=== PATIENT | female | born 1990 | race American Indian/Alaskan Native ===

== ENCOUNTER 2019-03-28 16:55 | Outpatient (CLI) | payer OTHER ==
[2019-03-28 17:23] VITALS: BP 127/72
[2019-03-28 17:52] LABS: Bilirubin,Urine NEG (Negative); Blood,Urine NEG (Negative); Color,Urine Yellow (Yellow); Mucus,Urine FEW /HPF; Protein,Urine <15 mg/dL mg/dL (Negative)
== END 2019-03-28 18:55 | disposition home or self-care (01) ==
LOC: TRG 16:55
PROVIDERS: ATTEND Obstetrics & Gynecology
DX: O47.03 False labor before 37 completed weeks of gestation, third trimester (principal); Z3A.34 34 weeks gestation of pregnancy
CPT/HCPCS: 59025; 81001

== ENCOUNTER 2019-04-19 16:24 | Outpatient (CLI) | payer OTHER ==
[2019-04-19 18:04] VITALS: BP 135/79
[2019-04-19] MEDS ORDERED: TYLENOL PO ONE (18:34)
[2019-04-19 19:19] LABS: Bacteria,Urine 1+ /HPF (Negative); Bilirubin,Urine NEG (Negative); Blood,Urine NEG (Negative); Color,Urine Yellow (Yellow); Mucus,Urine FEW /HPF
== END 2019-04-19 19:40 | disposition home or self-care (01) ==
LOC: TRG 16:24 → LD 17:25 → TRG 19:40
PROVIDERS: ATTEND Obstetrics & Gynecology
DX: O47.03 False labor before 37 completed weeks of gestation, third trimester (principal); Z3A.37 37 weeks gestation of pregnancy
CPT/HCPCS: 59025; 81001

== ENCOUNTER 2019-04-27 13:01 | Outpatient (CLI) | payer OTHER ==
[2019-04-27 13:41] VITALS: BP 118/76
== END 2019-04-27 14:20 | disposition home or self-care (01) ==
LOC: TRG 13:01
PROVIDERS: ATTEND Obstetrics & Gynecology
DX: O26.893 Other specified pregnancy related conditions, third trimester (principal); R10.2 Pelvic and perineal pain; Z3A.38 38 weeks gestation of pregnancy
CPT/HCPCS: 59025

== ENCOUNTER 2019-05-02 16:54 | Inpatient (IN) | payer OTHER ==
[2019-05-02] MEDS ORDERED: ZOFRAN IV PRN (17:13)
[2019-05-02] MEDS ORDERED: BRETHINE IVP PRN (17:13)
[2019-05-02] MEDS ORDERED: NARCAN 0.4 MG/1 ML IV PRN (17:13)
[2019-05-02] MEDS ORDERED: BRETHINE SUB-Q PRN (17:13)
[2019-05-02] MEDS ORDERED: XYLOCAINE 2% INFILTRATI ONE (17:13)
[2019-05-02] MEDS ORDERED: MINERAL OIL PO PRN (17:13)
[2019-05-02] MEDS ORDERED: PITOCin/NS 20 UNIT/1000ML DRIP 20 UNITS/1,000 ML BAG IV SCH (18:00)
[2019-05-02] MEDS ORDERED: PITOCin/NS 30 UNIT/500ML 30 UNITS/500 ML BAG IV SCH (18:00)
[2019-05-02 18:17] LABS: Hematocrit 26.9 % (30.3-42.9); Hemoglobin 9.1 gm/dl (10.1-14.3); Mean Corpuscular HGB Conc 34 % (30-34); Mean Corpuscular Volume 79 fl (79-97); Platelet Count 233 K/mm3 (140-440); Red Blood Count 3.39 M/mm3 (3.65-5.03); Red Cell Distribution Width 15.1 % (13.2-15.2)
[2019-05-02 19:23] LABS: Alanine Aminotransferase 12 units/L (7-56); Uric Acid 5.5 mg/dL (3.5-7.6)
--- NOTE | 2019-05-02 19:53 | History and Physical Report ---
History of Present Illness Date of examination: 05/02/19 Date of admission: 05/02/19 17:13 Chief complaint: Presents for induction of labor due to maternal obesity, elevated blood pressures, and advanced cervical dilation. History of present illness: Early entry to care, course complicated by Anemia, Vitamin D Deficiency, and 2 UTIs. Co-managed with [facility] due maternal obesity. 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) Family/Genetic History: heart disease (mother) Social history: no significant social history, - Obstetrical History Expected Date of Delivery: 05/16/19 Actual Gestation: 38 Week(s) 0 Day(s) : 4 Para: 1 Hx # Term Pregnancies: 1 Spontaneous Abortions: 2 Number of Living Children: 1 #1 Infant Gender: Female year: 2009 Birthweight: 4.082 kg Method of Delivery: Vaginal Gestational age at delivery: 38 Complications: none Medications and Allergies Allergies Allergy/AdvReac Type Severity Reaction Status Date / Time No Known Allergies Allergy Verified 03/28/19 17:03 Active Meds: Active Medications Butorphanol Tartrate (Stadol) 2 mg IV Q2H PRN PRN Reason: Pain , Severe (7-10) Ephedrine Sulfate (Ephedrine Sulfate) 10 mg IV Q2M PRN PRN Reason: Hypotension Oxytocin/Sodium Chloride (Pitocin/Ns 20 Unit/1000ml Drip) 20 units in 1,000 mls @ 125 mls/hr IV DIRECT LILY Oxytocin/Sodium Chloride (Pitocin/Ns 30 Unit/500ml) 30 units in 500 mls @ 4 mls/hr IV TITR LILY; Protocol Lactated Ringer's (Lactated Ringers) 1,000 mls @ 125 mls/hr IV DIRECT LILY Mineral Oil (Mineral Oil) 30 ml PO QHS PRN PRN Reason: Constipation Naloxone HCl (Narcan 0.4 Mg/1 Ml) 0.1 mg IV Q2MIN PRN PRN Reason: Res Rate </= 8 or 02 SAT < 92% Ondansetron HCl (Zofran) 4 mg IV Q8H PRN PRN Reason: Nausea And Vomiting Terbutaline Sulfate (Brethine) 0.25 mg SUB-Q ONCE PRN PRN Reason: Hyperstimulation/Hypertonicity Terbutaline Sulfate (Brethine) 0.25 mg IVP ONCE PRN PRN Reason: Hyperstimulation/Hypertonicity Review of Systems All systems: negative - Vital Signs Vital signs: Vital Signs Pulse BP 68 158/84 05/02/19 17:32 05/02/19 17:32 Temp Pulse Resp BP Pulse Ox 98.4 F 68 16 158/84 05/02/19 18:07 05/02/19 18:07 05/02/19 18:07 05/02/19 18:07 - Physical Exam Breasts: Positive: normal Cardiovascular: Regular rate Lungs: Positive: Clear to auscultation, Normal air movement Abdomen: Positive: normal appearance, soft, normal bowel sounds Genitourinary (Female): Positive: normal external genitalia, normal perenium Vagina: Positive: normal moisture Uterus: Positive: enlarged Anus/Rectum: Positive: normal perianal skin Extremities: Positive: normal - Obstetrical FHR: category 1 Uterine Contraction Monitor Mode: External Cervical Dilatation: 4 (Intact; VTX) Cervical Effacement Percentage: 70 station: -2 Uterine Contraction Pattern: Absent Uterine Tone Measurement Phase: Resting Results Result Diagrams: 05/02/19 17:50 05/02/19 17:50 Abnormal lab results 05/02/19 05/02/19 Range/Units 17:50 17:50 RBC 3.39 L (3.65-5.03) M/mm3 Hgb 9.1 L (10.1-14.3) gm/dl Hct 26.9 L (30.3-42.9) % MCH 27 L (28-32) pg Creatinine 0.6 L (0.7-1.2) mg/dL All other labs normal. Assessment and Plan A: IUP @ 38 Weeks Category I Tracing Elevated Blood Pressure Maternal Obesity Advanced Cervical Dilation Anemia GBS Negative P: Admit to L&D per Routine Orders PIH Labs Pitocin Induction
[2019-05-03] MEDS: LACTATED RINGERS 1,000 ML IV SCH ×2 (01:03→11:48)
--- NOTE | 2019-05-03 11:10 | Progress Note ---
Assessment and Plan A: Term IUP Pitocin IOL; Pit 8mu(Morbid obesity, Advanced cervical dilation) Category 1 tracing AROM 05/03/19 @11:00; Moderate clear fluid GBS Negative Anticipate P: Continue L&D orders May have IV pain med/epidural PRN Anticipate Subjective - Subjective Date of service: 05/03/19 (11:00) Principal diagnosis: IUP at term, IOL, MO Interval history: See H&P Patient reports: movement normal, contractions (rates "5"on 0/10 pain scale), no loss of fluid, no vaginal bleeding Objective - Vital Signs Vital Signs: Vital Signs - 12hr 05/03/19 05/03/19 05/03/19 07:35 07:37 07:40 Temperature 98.9 F Pulse Rate 79 79 Blood Pressure 173/92 136/70 - Exam Breasts: normal Cardiovascular: Regular rate, Normal S1, Normal S2, No murmurs Lungs: Clear to auscultation, Normal air movement Abdomen: Present: normal appearance, soft, normal bowel sounds, other (gravid) Vulva: both: normal Uterus: Present: other (gravid; S=D) FHR: category 1 Uterine Contraction Monitor Mode: External Cervical Dilatation: 6 (AROM, moderate amt clear fluid. Pt tolerated well) Cervical Effacement Percentage: 70 station: -2 Uterine Contraction Frequency (min): 3-6 Uterine Contraction Pattern: Regular Uterine Tone Measurement Phase: Resting Uterine Contraction Intensity: Moderate Extremities: normal Deep Tendon Reflex Grade: Normal +2 - Labs Labs: Abnormal Labs 05/02/19 05/02/19 17:50 17:50 RBC 3.39 L Hgb 9.1 L Hct 26.9 L MCH 27 L Creatinine 0.6 L Laboratory Results - last 24 hr 05/02/19 05/02/19 05/02/19 17:50 17:50 17:50 WBC 7.1 RBC 3.39 L Hgb 9.1 L Hct 26.9 L MCV 79 MCH 27 L MCHC 34 RDW 15.1 Plt Count 233 Creatinine 0.6 L Estimated GFR > 60 Uric Acid 5.5 AST 14 ALT 12 Lactate Dehydrogenase 133 Blood Type O POSITIVE Antibody Screen Negative
[2019-05-03] MEDS: STADOL IV PRN ×2 (11:23→14:32)
[2019-05-03] MEDS ORDERED: LANSINOH TP PRN (15:31)
[2019-05-03] MEDS ORDERED: DULCOLAX PR PRN (15:31)
[2019-05-03] MEDS ORDERED: TUCKS PAD TP PRN (15:31)
[2019-05-03] MEDS ORDERED: BENADRYL PO PRN (15:31)
[2019-05-03] MEDS ORDERED: MILK OF MAGNESIA PO PRN (15:31)
[2019-05-03] MEDS ORDERED: ZOFRAN IV PRN (15:31)
--- NOTE | 2019-05-03 15:39 | Procedure Note ---
OB Delivery Note - Delivery Date of Delivery: 05/03/19 (15:15) Surgeon: CIELO CRANE (AZRA) Estimated blood loss: 200cc - Vaginal Delivery presentation: vertex Delivery position: OA Intrapartum events: mult.variable deceleratio Delivery induction: oxytocin Delivery augmentation: rupture of membranes Delivery monitor: external FHT, external uterine Route of delivery: (15:15) Delivery placenta: spontaneous (15:21) Delivery cord: nuchal cord (x1, tight), 3 umbilical vessels Delivery laceration: 1st degree (small; approximates well; left unrepaired) Anesthesia: intravenous Delivery comments: viable male infant JESI, tight nuchal cord x1 delivered intact via somersault maneuver at 15:15. Vigorous placed [id number] on mothers abdomen. Delayed cord clamping then cut by FOB with my guidance. Cord blood collected per protocol. Spontaneous fiore delivery of intact placenta at 15:21. 3VC. Discarded via Hospital. FF@U-1. Small first degree laceration, well approximates, minimal bleeding, left unrepaired. No other tears or lacerations noted. Infant and mother left in stable condition in L&D. EBL 200ml - A at 1 minute: 8 at 5 minutes: 9 Gender: Male (3391 grams, 7lbs 8oz, 18.5")
[2019-05-03] MEDS ORDERED: SODIUM CHLORIDE FLUSH SYRINGE 10 ML IV NR (16:00)
[2019-05-03] MEDS: IBUPROFEN PO SCH ×2 (16:45→23:03)
[2019-05-03] MEDS ORDERED: DERMOPLAST TP PRN (19:26)
[2019-05-03] MEDS: NORCO 5/325 PO PRN (20:05)
[2019-05-04] MEDS: NORCO 5/325 PO PRN ×2 (03:31→16:34)
[2019-05-04 06:16] LABS: Hematocrit 23.8 % (30.3-42.9)
[2019-05-04] MEDS: IBUPROFEN PO SCH ×3 (06:57→19:41)
--- NOTE | 2019-05-04 07:08 | Progress Note ---
Assessment and Plan A: PPD#1 s/p Bottle feeding Asymptomatic Anemia Desires Depo Provera prior to discharge home Stable P: Continue routine PP orders Infed 100mg IM x1 dose Depo Provera 150mg IM x1 dose Continue Ferrous sulfate Anticipate discharge home today pending peds Subjective - Subjective Date of service: 05/04/19 Principal diagnosis: PPD#1 s/p Interval history: See H&P and delivery note Patient reports: appetite normal, voiding normally, pain well controlled, flatus, ambulating normally, no bowel movement : doing well, bottle feeding Objective - Vital Signs Latest vital signs: Vital Signs Temp Pulse Resp BP BP Pulse Ox 05/04/19 04:40 97.7 F 68 18 127/72 99 05/04/19 00:36 97.5 F L 81 20 130/86 100 05/03/19 20:50 97.9 F 63 20 123/62 100 05/03/19 17:39 98.3 F 59 L 20 144/59 05/03/19 13:47 97.8 F 05/03/19 07:40 98.9 F 05/03/19 07:37 79 136/70 05/03/19 07:35 79 173/92 Intake and Output 05/03/19 05/03/19 05/04/19 15:59 23:59 07:59 Intake Total 1000 360 360 Output Total 400 300 Balance 1000 -40 60 Intake: IV 1000 Lactated Ringers 1,000 ml 1000 @ 125 mls/hr IV DIRECT LILY Rx#:[id number] Intake, Free Water 360 360 Output: Urine 400 300 Void 400 300 Other: Total, Output Amount 400 300 Estimated Blood Loss 200 - Exam Breasts: Present: normal. Absent: Cardiovascular: Present: Regular rate, Normal S1, Normal S2, No murmurs Lungs: Present: Clear to auscultation, Normal air movement Abdomen: Present: normal appearance, soft, normal bowel sounds Vulva: both: normal Uterus: Present: firm, fundal height below umbilicus (-1) Extremities: Present: normal Deep Tendon Reflex Grade: Normal +2 - Labs Labs: Abnormal lab results 05/04/19 Range/Units 05:57 Hgb 8.0 L (10.1-14.3) gm/dl Hct 23.8 L (30.3-42.9) %
--- NOTE | 2019-05-04 08:02 | Discharge Summary ---
Providers - Providers Date of Admission: 05/02/19 17:13 Date of discharge: 05/04/19 Attending physician: DIEGO HECTOR MD Primary care physician: DIEGO HECTOR MD Hospitalization Reason for admission: active labor, IUP at term Delivery: Procedure details: See H&P and delivery note Episiotomy: none Laceration: 1st degree (small, well approximated. Left unrepaired) Other procedures: none complications: none Discharge diagnosis: IUP at term delivered Condition at discharge: Good Disposition: DC-01 TO HOME OR SELFCARE Plan - Provider Discharge Summary Activity: routine, no sex for 6 weeks, no heavy lifting 4 weeks, no strenuous exercise Diet: routine Instructions: routine Additional instructions: [] Smoking cessation referral if applicable(refer to patient education folder for contact #) [] Refer to [facility] Booklet Call your doctor immediately for: * Fever > 100.5 * Heavy vaginal bleeding ( >1 pad per hour) * Severe persistent headache * Shortness of breath * Reddened, hot, painful area to leg or breast * Drainage or odor from incision. * Keep incision clean and dry at all times and follow doctor's instructions regarding bathing/showering Depo Provera 150mg IM x 1 dose prior to discharge home IFed 100mg IM x 1 dose given for asymptomatic anemia Continue Ferrous Sulfate 325mg by mouth twice daily Continue vitamins - Follow up plan Follow up: DIEGO HECTOR MD [Primary Care Provider] - 6 Weeks
[2019-05-04] MEDS ORDERED: DEPO-PROVERA (CONTRACEPTION) IM NR (08:30)
[2019-05-04] MEDS ORDERED: INFED IM NR (09:30)
[2019-05-05] MEDS: IBUPROFEN PO SCH ×5 (01:30→21:01)
[2019-05-05] MEDS: TYLENOL PO PRN (07:52)
--- NOTE | 2019-05-05 11:20 | Progress Note ---
Assessment and Plan A: day 2 S/P spontaneous vaginal delivery. Elevated blood pressures. Anemia secondary to and blood loss. P: Repeat preeclamptic labs. Labetalol 100 mg po BID. Supplement with oral iron. Subjective - Subjective Date of service: 05/05/19 Principal diagnosis: PPD#2 s/p Interval history: day 2 S/P spontaneous vaginal delivery. Patient has had elevated blood pressures; not currently taking any blood pressure medications. Patient denies headache, chest pain, cough, shortness of breath, visual disturbance, nausea or vomiting, swelling, or leg pain. Patient reports a small amount of lochia. She is voiding without difficulty, ambulating well, and tolerating a regular diet. Patient reports: appetite normal, voiding normally, pain well controlled, fla tus, ambulating normally, no dizzy ambulation, no nauseated [place]: doing well Objective - Vital Signs Latest vital signs: Vital Signs Temp Pulse Resp BP BP Pulse Ox 05/05/19 09:42 98.6 F 67 16 158/80 99 05/04/19 23:58 98.2 F 78 18 140/78 97 05/04/19 20:10 65 140/77 05/04/19 16:31 98.1 F 71 18 153/79 05/04/19 12:11 98.4 F 63 18 164/76 Intake and Output 05/04/19 05/05/19 05/05/19 23:59 07:59 15:59 Intake Total 840 480 Balance 840 480 Intake: Oral 480 Intake, Free Water 360 480 Other: Total, Intake Amount 480 # Voids Void 240 1 - Exam Abdomen: Present: normal appearance, soft. Absent: distention, tenderness, guarding, rigidity Uterus: Present: normal, firm, fundal height below umbilicus Extremities: Present: normal, edema (mild bilateral lower extremities)
[2019-05-05] MEDS: NORMODYNE PO SCH ×2 (11:40→21:03)
[2019-05-05] MEDS: FEOSOL PO SCH ×2 (11:40→21:00)
[2019-05-05 14:01] LABS: Hematocrit 25.2 % (30.3-42.9); Hemoglobin 8.3 gm/dl (10.1-14.3); Mean Corpuscular HGB Conc 33 % (30-34); Mean Corpuscular Volume 81 fl (79-97); Platelet Count 226 K/mm3 (140-440); Red Blood Count 3.11 M/mm3 (3.65-5.03); Red Cell Distribution Width 15.8 % (13.2-15.2)
[2019-05-05 14:24] LABS: Alanine Aminotransferase 13 units/L (7-56); Albumin 2.9 g/dL (3.9-5); BUN/Creatinine Ratio 17; Blood Urea Nitrogen 10 mg/dL (7-17); Calcium 8.7 mg/dL (8.4-10.2); Hemolysis Index 3
[2019-05-05 14:51] LABS: Bilirubin,Urine NEG (Negative); Blood,Urine MOD (Negative); Color,Urine Yellow (Yellow); Mucus,Urine 1+ /HPF; Urobilinogen,Urine < 2.0 mg/dL (<2.0)
[2019-05-05] MEDS ORDERED: NORMODYNE PO ONE (16:00)
[2019-05-06] MEDS: TYLENOL PO PRN ×3 (02:42→20:32)
[2019-05-06] MEDS: IBUPROFEN PO SCH ×3 (06:26→16:00)
[2019-05-06] MEDS: FEOSOL PO SCH ×2 (10:25→21:43)
[2019-05-06] MEDS: NORMODYNE PO SCH ×2 (10:25→21:43)
--- NOTE | 2019-05-06 12:22 | Progress Note ---
Assessment and Plan A: day 3 S/P vaginal delivery. Hypertension. Morbid obesity. Heart murmur. Anemia secondary to and blood loss. P: Increase Labetalol to 200 mg po BID. Monitor vital signs. Continue iron supplementation. Consulted with Dr. Llamas re: heart murmur; he states OK to get work up as an outpatient after hospital discharge. If BPs stabilize, anticipate discharge sometime tomorrow. Subjective - Subjective Date of service: 05/06/19 Principal diagnosis: PPD#3 s/p Interval history: day 3 S/P spontaneous vaginal delivery. Patient is taking Labetalol 100 mg po BID for hypertension. Patient's BPs still elevated. Patient denies headache, cough, chest pain, visual disturbance, dizziness, abdominal pain, or leg pain. She states she has GERD symptoms and wants medication for this. Patient reports: appetite normal, voiding normally, pain well controlled, flatus, ambulating normally, no dizzy ambulation, no nauseated : doing well Objective - Vital Signs Latest vital signs: Vital Signs Temp Pulse Resp BP BP Pulse Ox 05/06/19 10:25 73 128/40 05/06/19 08:35 97.9 F 73 20 128/40 05/06/19 06:26 18 05/06/19 03:42 18 05/06/19 02:42 18 05/06/19 01:39 98.3 F 72 20 149/67 94 05/05/19 22:01 18 05/05/19 21:03 60 176/61 05/05/19 21:01 18 05/05/19 20:59 184/55 05/05/19 20:55 176/61 05/05/19 16:42 98.1 F 85 16 139/70 100 05/05/19 16:30 98.6 F 87 18 139/70 100 05/05/19 15:31 70 162/81 05/05/19 13:59 70 162/81 Intake and Output 05/05/19 05/06/19 05/06/19 23:59 07:59 15:59 Intake Total 500 120 Balance 500 120 Intake: Oral 300 120 Intake, Free Water 200 Other: Total, Intake Amount 300 120 # Voids Void 1 - Exam Cardiovascular: Present: Regular rate, Normal S1, Normal S2, Other (murmur heard) Lungs: Present: Clear to auscultation Abdomen: Present: normal appearance, soft, normal bowel sounds. Absent: distention, tenderness, guarding, rigidity Uterus: Present: normal, firm, fundal height below umbilicus. Absent: boggine ss, tenderness Extremities: Present: normal, edema (mild pedal edema bilaterally). Absent: tenderness - Labs Labs: Abnormal lab results 05/05/19 05/05/19 Range/Units 13:32 13:32 RBC 3.11 L (3.65-5.03) M/mm3 Hgb 8.3 L (10.1-14.3) gm/dl Hct 25.2 L (30.3-42.9) % MCH 27 L (28-32) pg RDW 15.8 H (13.2-15.2) % Potassium 3.5 L (3.6-5.0) mmol/L Creatinine 0.6 L (0.7-1.2) mg/dL Glucose 101 H (65-100) mg/dL Lactate Dehydrogenase 184 H (91-180) units/L Total Protein 6.2 L (6.3-8.2) g/dL Albumin 2.9 L (3.9-5) g/dL
[2019-05-06 19:12] LABS: BUN/Creatinine Ratio 16; Blood Urea Nitrogen 8 mg/dL (7-17); Calcium 8.5 mg/dL (8.4-10.2); Hemolysis Index 2
[2019-05-06] MEDS: PEPCID PO SCH (21:43)
[2019-05-07 00:04] LABS: Alanine Aminotransferase 29 units/L (7-56)
[2019-05-07] MEDS: IBUPROFEN PO SCH ×2 (03:53→12:50)
[2019-05-07] MEDS: TYLENOL PO PRN (06:15)
[2019-05-07] MEDS: NORMODYNE PO SCH (10:08)
[2019-05-07] MEDS: FEOSOL PO SCH (10:08)
[2019-05-07] MEDS: PEPCID PO SCH (10:08)
[2019-05-07 12:22] LABS: Hematocrit 23.2 % (30.3-42.9); Hemoglobin 7.8 gm/dl (10.1-14.3); Mean Corpuscular HGB Conc 34 % (30-34); Mean Corpuscular Volume 81 fl (79-97); Platelet Count 245 K/mm3 (140-440); Red Blood Count 2.88 M/mm3 (3.65-5.03); Red Cell Distribution Width 15.7 % (13.2-15.2)
--- NOTE | 2019-05-07 12:28 | Progress Note ---
Assessment and Plan - Patient Problems (1) Status post normal vaginal delivery Current Visit: Yes Status: Acute Plan to address problem: PPD 4 - stable Continue routine orders Discharge to home later today if PIH labs WNL. (2) Gestational hypertension Current Visit: Yes Status: Acute Qualifiers: Trimester: third trimester Qualified Code(s): O13.3 - Gestational [-induced] hypertension without significant proteinuria, third trimester Plan to address problem: SBPs still elevated but stable Repeat PIH labs ordered Currently on Labetalol 200mg PO BID. Will increase to Labetalol 300mg PO BID If PIH labs normal, will discharge to home on Labetalol and have her f/u at the clinic in 2 days for BP check. 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 and Discharge Summary Patient reports: appetite normal, voiding normally, pain well controlled, ambulating normally, other (denies headache, visual disturbances or RUQ pain), no dizzy ambulation : doing well, bottle feeding Objective - Vital Signs Latest vital signs: Vital Signs Temp Pulse Resp BP BP BP Pulse Ox 05/07/19 10:08 66 156/84 05/07/19 08:28 73 160/73 100 05/07/19 06:19 82 127/61 05/06/19 23:15 74 153/64 05/06/19 21:37 98.3 F 64 16 165/66 100 05/06/19 15:25 98.4 F 83 20 157/68 05/06/19 13:08 68 176/84 - Exam Cardiovascular: Present: Regular rate Abdomen: Present: normal appearance, soft Vulva: both: laceration/episiotomy Uterus: Present: normal, firm, fundal height below umbilicus Extremities: Present: normal Comments: scant lochia - Labs Labs: Abnormal lab results 05/06/19 05/07/19 Range/Units 17:57 12:10 RBC 2.88 L (3.65-5.03) M/mm3 Hgb 7.8 L (10.1-14.3) gm/dl Hct 23.2 L (30.3-42.9) % MCH 27 L (28-32) pg RDW 15.7 H (13.2-15.2) % Creatinine 0.5 L (0.7-1.2) mg/dL
[2019-05-07 12:43] LABS: Uric Acid 7.1 mg/dL (3.5-7.6)
[2019-05-07] MEDS ORDERED: NORMODYNE PO SCH ×2 (13:23→13:30)
--- NOTE | 2019-05-07 13:25 | Discharge Summary ---
Providers - Providers Date of Admission: 05/02/19 17:13 Date of discharge: 05/07/19 Attending physician: DIEGO HECTOR MD Primary care physician: DIEGO HECTOR MD Hospitalization Reason for admission: induction of labor, IUP at term Delivery: Episiotomy: none Laceration: 1st degree Other procedures: none complications: none Discharge diagnosis: IUP at term delivered baby: male Hospital course: Complicated by elevated BPs without proteinuria and normal PIH labs Condition at discharge: Stable Disposition: OR-01 TO HOME OR SELFCARE - Discharge Diagnoses (1) Status post normal vaginal delivery Status: Acute (2) Gestational hypertension Status: Acute Qualifiers: Trimester: third trimester Qualified Code(s): O13.3 - Gestational [-induced] hypertension without significant proteinuria, third trimester Comment: Reviewed signs and symptoms of PIH Continue Labetalol 300mg PO BID (3) Anemia due to blood loss, acute Status: Acute Comment: Asymptomatic Continue iron therapy Encouraged iron-rich foods Plan - Discharge Medications Prescriptions: Ferrous Sulfate [Feosol 325 MG tab] 325 mg PO BID #60 tablet Labetalol [Labetalol 100mg TAB] 300 mg PO BID #60 tablet - Provider Discharge Summary Activity: routine, no sex for 6 weeks, no heavy lifting 4 weeks, no strenuous exercise Diet: routine Instructions: routine Additional instructions: [] Smoking cessation referral if applicable(refer to patient education folder for contact #) [] Refer to [facility] Booklet Call your doctor immediately for: * Fever > 100.5 * Heavy vaginal bleeding ( >1 pad per hour) * Severe persistent headache * Shortness of breath * Reddened, hot, painful area to leg or breast * Drainage or odor from incision. * Keep incision clean and dry at all times and follow doctor's instructions regarding bathing/showering - Follow up plan Follow up: DIEGO HECTOR MD [Primary Care Provider] - 05/09/19 (Follow up at [facility] in 2 days for BP check) Forms: [facility] Discharge Summary
[2019-05-07 14:55] VITALS: BP 164/81
== END 2019-05-07 14:45 | disposition home or self-care (01) | DRG 774 ==
LOC: TRG 16:54 → LD 17:13 → TRG 17:24 → OB 05-03 17:30 → UNDODISIN 05-07 12:40
PROVIDERS: ADMIT Obstetrics & Gynecology; ATTEND Obstetrics & Gynecology
PROC: 10E0XZZ Delivery of Products of Conception, External Approach (ICD-10-PCS; principal; 2019-05-03)
PROC: 0HQ9XZZ Repair Perineum Skin, External Approach (ICD-10-PCS; 2019-05-03)
PROC: 3E033VJ Introduction of Other Hormone into Peripheral Vein, Percutaneous Approach (ICD-10-PCS; 2019-05-03)
PROC: 10907ZC Drainage of Amniotic Fluid, Therapeutic from Products of Conception, Via Natural or Artificial Opening (ICD-10-PCS; 2019-05-03)
DX: O76 Abnormality in fetal heart rate and rhythm complicating labor and delivery (principal); O99.42 Diseases of the circulatory system complicating childbirth; O99.214 Obesity complicating childbirth; O13.4 Gestational [pregnancy-induced] hypertension without significant proteinuria, complicating childbirth; D62 Acute posthemorrhagic anemia; O99.62 Diseases of the digestive system complicating childbirth; E66.01 Morbid (severe) obesity due to excess calories; O69.81X0 Labor and delivery complicated by cord around neck, without compression, not applicable or unspecified; R01.1 Cardiac murmur, unspecified; O70.0 First degree perineal laceration during delivery; Z3A.38 38 weeks gestation of pregnancy; Z37.0 Single live birth
CPT/HCPCS: 36415; 80048; 80053; 81001; 82565; 83615; 84450; 84460; 84550; 85014; 85018; 85027; 85049; 86850; 86900; 86901; G0378; J0595; J1050; J1750; J2590; J7120

== ENCOUNTER 2020-03-17 13:18 | Emergency (ER) | payer OTHER ==
[2020-03-17] MEDS ORDERED: ACETAMINOPHEN 500 MG TAB PO ONE (17:50)
--- NOTE | 2020-03-17 18:18 | Emergency Department Report ---
<KIM MARRERO - Last Filed: 03/17/20 18:49> - General Chief complaint: Urogenital-Female Stated complaint: RT BREAST PAIN/ Time Seen by Provider: 03/17/20 17:37 Source: patient Mode of arrival: Ambulatory Limitations: No Limitations - History of Present Illness Initial comments: This is a 30-year-old female nontoxic, well nourished in appearance, no acute signs of distress presents to the ED with c/o of redness and pain with swelling to right breast area x2 weeks. Patient was sent by OBGYN for US to r/o abscess. Patient is taking Clinda without relief and getting worse. Patient is . Patient denies any pus or drainage. Patient denies any fever, chills, nausea, vomiting, chest pain, shortness of breath, headache or stiff neck. Patient denies any allergies. -: week(s) (2) Severity: moderate Severity scale (0 -10): 8 Quality: aching Consistency: constant Improves with: none Worsens with: none Associated symptoms: denies other symptoms Treatments Prior to Arrival: none - Related Data Previous Rx's Medication Instructions Recorded Last Taken Type Ferrous Sulfate [Feosol 325 MG tab] 325 mg PO BID #60 tablet 05/07/19 Unknown Rx labetaloL [Labetalol 100mg TAB] 300 mg PO BID #60 tablet 05/07/19 Unknown Rx Allergies Allergy/AdvReac Type Severity Reaction Status Date / Time No Known Allergies Allergy Verified 03/28/19 17:03 Abscess Boil HPI - HPI Chief Complaint: Urogenital-Female Stated Complaint: RT BREAST PAIN/ Time Seen by Provider: 03/17/20 17:37 Home Medications: Previous Rx's Medication Instructions Recorded Last Taken Type Ferrous Sulfate [Feosol 325 MG tab] 325 mg PO BID #60 tablet 05/07/19 Unknown Rx labetaloL [Labetalol 100mg TAB] 300 mg PO BID #60 tablet 05/07/19 Unknown Rx Allergies/Adverse Reactions: Allergies Allergy/AdvReac Type Severity Reaction Status Date / Time No Known Allergies Allergy Verified 03/28/19 17:03 ED Review of Systems Constitutional: denies: chills, fever Eyes: denies: eye pain, eye discharge, vision change ENT: denies: ear pain, throat pain Respiratory: denies: cough, shortness of breath, wheezing Cardiovascular: denies: chest pain, palpitations Endocrine: no symptoms reported Gastrointestinal: denies: abdominal pain, nausea, diarrhea Genitourinary: denies: urgency, dysuria, discharge Musculoskeletal: denies: back pain, joint swelling, arthralgia Skin: denies: rash, lesions Neurological: denies: headache, weakness, paresthesias Psychiatric: denies: anxiety, depression Hematological/Lymphatic: denies: easy bleeding, easy bruising ED Past Medical Hx - Past Medical History Previous Medical History?: No Hx Hypertension: No Hx Congestive Heart Failure: No Hx Diabetes: No Hx Deep Vein Thrombosis: No Hx Renal Disease: No Hx Sickle Cell Disease: No Hx Seizures: No Hx Asthma: No Hx COPD: No Hx HIV: No - Surgical History Past Surgical History?: Yes Additional Surgical History: Liposuction - Social History Smoking Status: Never Smoker - Medications Home Medications: Home Medications Medication Instructions Recorded Confirmed Last Taken Type Ferrous Sulfate [Feosol 325 MG tab] 325 mg PO BID #60 tablet 05/07/19 Unknown Rx labetaloL [Labetalol 100mg TAB] 300 mg PO BID #60 tablet 05/07/19 Unknown Rx ED Physical Exam - General Limitations: No Limitations General appearance: alert, in no apparent distress - Head Head exam: Present: atraumatic, normocephalic - Eye Eye exam: Present: normal appearance - Neck Neck exam: Present: normal inspection, full ROM. Absent: tenderness, meningismus, lymphadenopathy - Extremities Exam Extremities exam: Present: full ROM - Back Exam Back exam: Present: full ROM - Neurological Exam Neurological exam: Present: alert, oriented X3, normal gait - Psychiatric Psychiatric exam: Present: normal affect, normal mood - Skin Skin exam: Present: warm, dry, intact, normal color. Absent: rash - Expanded Skin Exam Expanded Description of rash: Present: tenderness, erythematous 1 - 4-5 cm redness, warm to touch, with some swelling noted here ED Course - Reevaluation(s) Reevaluation #1: 03/17/20 18:21 Patient is speaking in full sentences with no signs of distress noted. - Consultations Consultation #1: 07/13/20 18:50 Patient signed out to Dr. Calabrese for further evaluation and treatment. Awaiting for US to r/o abscess. ED Disposition Clinical Impression: Breast abscess during , antepartum Disposition: DC-01 TO HOME OR SELFCARE Condition: Stable Instructions: (ED), Breast Abscess Drainage (ED) Additional Instructions: Take the medication as prescribed. Continue your antibiotics as prescribed. Call the breast surgeon in the morning at 8 AM. The office will provide a time to come in tomorrow so they may drain your breast abscess. Return if symptoms worsen as indicated by your discharge instructions Referrals: PRIMARY CAREMD [Primary Care Provider] - 3-5 Days ELIEL RUVALCABA MD [Staff Physician] - 03/18/20 (breast surgeon Call the office at 8 AM to receive a time to come in tomorrow Verify the correct office address prior to going to your appointment) <SREEKANTH CALABRESE - Last Filed: 03/17/20 23:53> ED Review of Systems ROS: Stated complaint: RT BREAST PAIN/ Other details as noted in HPI ED Course Vital Signs 03/17/20 03/17/20 03/17/20 13:46 18:54 22:28 Temperature 98.2 F Pulse Rate 74 Respiratory 20 18 18 Rate Blood Pressure 131/77 Blood Pressure [Right] O2 Sat by Pulse 100 Oximetry 03/17/20 23:35 Temperature 98.8 F Pulse Rate 65 Respiratory 18 Rate Blood Pressure Blood Pressure 101/70 [Right] O2 Sat by Pulse 100 Oximetry - Reevaluation(s) Reevaluation #2: 03/17/20 22:01 pt is 14 weeks US + for abscess call to general surgeon - Consultations Consultation #1: 03/17/20 22:08 case dw gen surgeon Dr Burnham. suggest IV vanc, needle aspiration, f/u with Peg breast surgeon. Requests to attempt to call Dr Noel if she is available. 03/17/20 22:[address] Ruvalcaba for breast surgeon. She did see patient in the office tomorrow for I and D/needle aspiration. Patient needs to call [phone] at 8 AM to be informed of a time to come to the office tomorrow ED Medical Decision Making - Medical Decision Making Patient received Dilaudid 0.5 mg for pain and 1 dose of IV vancomycin. She was informed to follow-up with Dr. Ruvalcaba tomorrow. She needs to call [phone] at 8 AM to be informed of a time to come to the office tomorrow for incision and drainage/needle aspiration of breast abscess. Critical Care Time: No Critical care attestation.: If time is entered above; I have spent that time in minutes in the direct care of this critically ill patient, excluding procedure time. ED Disposition Is pt being admited?: No Does the pt Need Aspirin: No
--- NOTE | 2020-03-17 21:41 | Ultrasound Report ---
US breast RT complete INDICATION: right breast pain w/ swelling r/o abscess. TECHNIQUE: Grayscale and color Doppler imaging in the right breast. COMPARISON: None available. FINDINGS: In the medial right breast, 3:00 position, there is a 3.5 x 2.5 x 4.7 cm complex fluid collection sug gestive of an abscess. Signer Name: Tim Cline MD Signed: 03/17/2020 9:37 PM Workstation Name: [id number]
[2020-03-17] MEDS ORDERED: VANCOMYCIN/NS 1 GM/250 ML 1 GM/250 ML BAG IV ONE (22:06)
[2020-03-17] MEDS ORDERED: ONDANSETRON 4 MG/2 ML INJ IV ONE (22:09)
[2020-03-17] MEDS ORDERED: HYDROmorphone 1 MG/1 ML INJ IV ONE (22:09)
[2020-03-17] MEDS ORDERED: LIDOCAINE 1%/EPINEPHRINE 1:100,000 VIAL (20 ML) INFILTRATI ONE (23:00)
[2020-03-17 23:36] VITALS: BP 101/70
== END 2020-03-18 00:35 | disposition home or self-care (01) ==
LOC: ED 13:18
DX: O91.111 Abscess of breast associated with pregnancy, first trimester (principal); Z3A.14 14 weeks gestation of pregnancy; Z98.890 Other specified postprocedural states; Z79.899 Other long term (current) drug therapy
CPT/HCPCS: 76641; 96365; 96375; 99283; J1170; J2405; J3370

== ENCOUNTER 2020-03-19 08:05 | Outpatient (CLI) | payer OTHER | END 2020-03-19 08:06 | disposition home or self-care (01) | LOC: LABHHL 08:05 | PROVIDERS: ATTEND Surgery | DX: N61.1 Abscess of the breast and nipple (principal) | CPT/HCPCS: 87075; 87076; 87116; 87186 ==

== ENCOUNTER 2020-08-10 08:17 | Outpatient (CLI) | payer OTHER ==
[2020-08-10 09:22] VITALS: BP 132/78
== END 2020-08-10 10:00 | disposition home or self-care (01) ==
LOC: TRG 08:17 → APU 08:20 → TRG 09:03
PROVIDERS: ATTEND Obstetrics & Gynecology
DX: O26.893 Other specified pregnancy related conditions, third trimester (principal); N89.8 Other specified noninflammatory disorders of vagina; Z3A.34 34 weeks gestation of pregnancy
CPT/HCPCS: 59025

== ENCOUNTER 2020-08-14 16:44 | Inpatient (IN) | payer OTHER ==
[2020-08-14] MEDS ORDERED: hydrALAZINE 20 MG/1 ML INJ ONE (18:49)
[2020-08-14] MEDS ORDERED: ONDANSETRON 4 MG/2 ML INJ IV PRN (18:52)
[2020-08-14] MEDS ORDERED: TERBUTALINE 1 MG/1 ML INJ SUB-Q PRN (18:52)
[2020-08-14] MEDS ORDERED: ePHEDrine SULFATE 50 MG/1 ML INJ IV PRN (18:52)
[2020-08-14] MEDS ORDERED: LIDOCAINE (2%) 20 MG/1 ML VIAL 20 ML MDV INFILTRATI ONE (18:52)
[2020-08-14] MEDS ORDERED: MINERAL OIL 30 ML ORAL LIQD PO PRN (18:52)
[2020-08-14] MEDS ORDERED: BUTORPHANOL 2 MG/1 ML INJ IV PRN ×2 (18:52)
[2020-08-14] MEDS ORDERED: hydrALAZINE 20 MG/1 ML INJ IV ONE (19:00)
[2020-08-14] MEDS: LACTATED RINGERS 1,000 ML IV SCH (19:17)
--- NOTE | 2020-08-14 19:50 | History and Physical Report ---
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 Pt denied bauman, visual problems or epigastric pain. She admitted to active . 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 Her GBS is neg. No other information is available at this time. Pt's b/p was severely elevated. She was admitted to L&D for MgSo4 therapy and Pitocin induction r/t severe preeclampsia. POC was notified of pt's condition. 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 Family/Genetic History: diabetes, heart disease Social history: - Obstetrical History Expected Date of Delivery: 09/15/20 Actual Gestation: 35 Week(s) 3 Day(s) : 5 Para: 2 Hx # Term Pregnancies: 2 Number of Pregnancies: 0 Spontaneous Abortions: 2 Induced : 0 Number of Living Children: 2 Medications and Allergies Allergies Allergy/AdvReac Type Severity Reaction Status Date / Time No Known Allergies Allergy Verified 03/28/19 17:03 Home Medications Medication Instructions Recorded Confirmed Last Taken Type Ferrous Sulfate [Feosol 325 MG tab] 325 mg PO BID #60 tablet 05/07/19 Unknown Rx labetaloL [Labetalol 100mg TAB] 300 mg PO BID #60 tablet 05/07/19 Unknown Rx Acetaminophen/Codeine [Tylenol 1 tab PO Q6H PRN #10 tab 03/17/20 Unknown Rx /Codeine # 3 tab] Active Meds: Active Medications Acetaminophen (Acetaminophen 325 Mg Tab) 650 mg PO Q4H PRN PRN Reason: Pain, Mild (1-3) Butorphanol Tartrate (Butorphanol 2 Mg/1 Ml Inj) 1 mg IV Q2H PRN PRN Reason: Pain, Moderate(4-6) LABOR PAIN Butorphanol Tartrate (Butorphanol 2 Mg/1 Ml Inj) 2 mg IV Q2H PRN PRN Reason: Pain , Severe (7-10) Ephedrine Sulfate (Ephedrine Sulfate 50 Mg/1 Ml Inj) 10 mg IV Q2M PRN PRN Reason: Hypotension Lactated Ringer's (Lactated Ringers) 1,000 mls @ 125 mls/hr IV DIRECT LILY Last Admin: 08/14/20 19:17 Dose: 125 mls/hr Documented by: Magnesium Sulfate (Magnesium Sulfate 40gm/1000ml) 40 gm in 1,000 mls @ 50 mls/hr IV DIRECT LILY Magnesium Sulfate (Magnesium Sulfate 4gm/100ml) 4 gm in 100 mls @ 300 mls/hr IV ONCE ONE Stop: 08/14/20 20:19 Mineral Oil (Mineral Oil 30 Ml Oral Liqd) 30 ml PO QHS PRN PRN Reason: Constipation Ondansetron HCl (Ondansetron 4 Mg/2 Ml Inj) 4 mg IV Q8H PRN PRN Reason: Nausea And Vomiting Terbutaline Sulfate (Terbutaline 1 Mg/1 Ml Inj) 0.25 mg SUB-Q ONCE PRN PRN Reason: Hyperstimulation/Hypertonicity Review of Systems All systems: negative Eyes: deferred Ears, nose, mouth and throat: deferred Breasts: normal Gastrointestinal: heartburn Genitourinary: normal appearance Rectal Exam: deferred - Vital Signs Vital signs: Vital Signs Pulse BP 75 183/75 08/14/20 18:52 08/14/20 18:52 Temp Pulse Resp BP Pulse Ox 97 H 164/80 99 08/14/20 19:46 08/14/20 19:25 08/14/20 19:46 - Physical Exam Breasts: Positive: normal Abdomen: Positive: normal appearance, soft, normal bowel sounds, other (gravid) Genitourinary (Female): Positive: normal external genitalia, normal perenium Vulva: both: normal Vagina: Positive: normal moisture Uterus: Positive: enlarged, normal contour, other (gravid) Adnexa: both: normal Anus/Rectum: Positive: normal perianal skin Extremities: Positive: normal - Obstetrical FHR: auscultation normal, category 1 Uterine Contraction Monitor Mode: External Cervical Dilatation: 4 Cervical Effacement Percentage: 60 station: -3 Uterine Contraction Frequency (min): irreg Uterine Contraction Pattern: Irregular Uterine Tone Measurement Phase: Resting Uterine Contraction Intensity: Mild Results Result Diagrams: 08/14/20 19:20 All other labs normal. Assessment and Plan A: IUP@ 35.3 wks Severe preeclampsia + HSV II p: Admit to L&D for Pitocin induction Start MgS04 per protocol Hydralazine 20mg IV now Continuous monitoring Anticipate - Patient Problems (1) Encounter for induction of labor Current Visit: Yes Status: Acute (2) Severe preeclampsia Current Visit: Yes Status: Acute (3) HSV (herpes simplex virus) anogenital infection Current Visit: Yes Status: Acute
[2020-08-14 19:51] LABS: Hematocrit 26.5 % (30.3-42.9); Hemoglobin 8.7 gm/dl (10.1-14.3); Mean Corpuscular HGB Conc 33 % (30-34); Mean Corpuscular Volume 78 fl (79-97); Platelet Count 254 K/mm3 (140-440); Red Cell Distribution Width 13.8 % (13.2-15.2)
[2020-08-14] MEDS ORDERED: MAGNESIUM SULFATE 4 GM/100 ML BAG IV ONE (20:00)
[2020-08-14] MEDS ORDERED: OXYTOCIN DRIP 30 UNITS/500 ML BAG IV SCH (20:00)
[2020-08-14 20:04] LABS: Alanine Aminotransferase 11 units/L (7-56); Uric Acid 3.9 mg/dL (3.5-7.6)
[2020-08-14] MEDS ORDERED: CALCIUM CARBONATE 500 MG TAB CHEW PO PRN (20:42)
[2020-08-14] MEDS: MAGNESIUM SULFATE 40GM/1000ML 40 GM/1,000 ML BAG IV SCH (21:10)
[2020-08-14] MEDS: FERROUS SULFATE 325 MG TAB PO SCH (22:01)
[2020-08-15] MEDS ORDERED: hydrALAZINE 20 MG/1 ML INJ ONE (07:12)
[2020-08-15] MEDS: LACTATED RINGERS 1,000 ML IV SCH ×2 (07:21→21:39)
[2020-08-15] MEDS ORDERED: hydrALAZINE 20 MG/1 ML INJ IV SCH (08:00)
--- NOTE | 2020-08-15 11:38 | Event Note ---
Date: 08/15/20 Assumed care of patient at 10:55. Patient is having labor induced due to severe preeclampsia. She is receiving magnesium sulfate. Cervix 8/90/0. Lateral positioning did not resolve variable FHR decelerations. Pitocin turned off at 10:55 AM. Oxygen applied per face mask at 10:55 AM. Amnioinfusion ordered. Hands and knees position instituted.
[2020-08-15] MEDS ORDERED: SODIUM CHLORIDE 0.9% 1000 ML 1,000 ML VG SCH (11:45)
[2020-08-15] MEDS ORDERED: miSOPROStol 200 MCG TAB ONE (12:08)
[2020-08-15] MEDS ORDERED: miSOPROStol 200 MCG TAB PR ONE (12:10)
[2020-08-15] MEDS ORDERED: WITCH HAZEL/ GLYCERIN PAD TP PRN (12:22)
[2020-08-15] MEDS ORDERED: LANOLIN/ZINC/DIMETHICONE (LANSINOH) 7 GM TP PRN (12:22)
[2020-08-15] MEDS ORDERED: oxyCODONE /ACETAMINOPHEN 5-325MG TAB PO PRN (12:22)
--- NOTE | 2020-08-15 12:26 | Procedure Note ---
OB Delivery Note - Delivery Date of Delivery: 08/15/20 Surgeon: JOSH RAMACHANDRAN Estimated blood loss: 300cc - Vaginal Delivery presentation: vertex Delivery position: OA Intrapartum events: preeclampsia Delivery induction: AROM Delivery monitor: external FHT, external uterine, internal FHT, internal uterine Route of delivery: Delivery placenta: spontaneous Delivery cord: nuchal cord, 3 umbilical vessels Episiotomy: none Delivery laceration: none Anesthesia: none Delivery comments: Spontaneous vaginal delivery at 12:01 PM weighing 6 lb. 11 oz. over intact perineum with apgars of 8/9. Tight nuchal cord times 1. Delivery was atraumatic. Baby placed skin to skin with mom immediately after delivery. Spontaneous cry and respirations. Baby suctioned with bulb syringe and dried with warm towels. 3 vessel cord double clamped and cut; cord blood obtained. Spontaneous delivery of intact placenta and membranes by onofre mechanism at 12:04 PM. EBL 300 cc. Pitocin to IV fluids after delivery of placenta. Cytotec 800 micrograms for uterine atony. Fundus firmed with massage. No lacerations noted. Vaginal sweep negative. Sponge count correct. Mother and baby stable. Magnesium sulfate continues for severe preeclampsia.
[2020-08-15] MEDS: ACETAMINOPHEN 325 MG TAB PO PRN ×2 (12:36→19:57)
[2020-08-15] MEDS ORDERED: hydrALAZINE 20 MG/1 ML INJ IV PRN (13:54)
[2020-08-15] MEDS ORDERED: HYDROcodone/ACETAMINOPHEN 5-325 MG TAB PO PRN (13:59)
[2020-08-15] MEDS: MAGNESIUM SULFATE 40GM/1000ML 40 GM/1,000 ML BAG IV SCH (16:38)
[2020-08-15] MEDS: FERROUS SULFATE 325 MG TAB PO SCH (21:39)
[2020-08-16 01:16] LABS: Hematocrit 24.2 % (30.3-42.9)
[2020-08-16] MEDS: ACETAMINOPHEN 325 MG TAB PO PRN (01:16)
[2020-08-16] MEDS: FERROUS SULFATE 325 MG TAB PO SCH ×2 (09:45→22:23)
[2020-08-16] MEDS ORDERED: FERROUS SULFATE 325 MG TAB PO SCH (10:00)
--- NOTE | 2020-08-16 10:11 | Progress Note ---
Assessment and Plan A: day 1 S/P . Chronic hypertension with superimposed severe preeclampsia. Anemia, on oral iron. P: Continue magnesium sulfate. Continue oral Labetalol. Continue oral iron. Subjective - Subjective Date of service: 08/16/20 Principal diagnosis: day 1 S/P ; preeclampsia Interval history: On magnesium sulfate. Chronic hypertension with superimposed severe preeclampsia. Denies headache, visual disturbance or N/V. Has swelling in hands and ankles/feet bilaterally. Patient reports: appetite normal, voiding normally, pain well controlled, no dizzy ambulation, no nauseated : doing well, in NICU Objective - Vital Signs Latest vital signs: Vital Signs Temp Pulse Resp BP BP Pulse Ox 08/16/20 10:00 73 100 08/16/20 09:55 76 99 08/16/20 09:50 88 99 08/16/20 09:45 80 146/79 100 08/16/20 09:40 84 100 08/16/20 09:35 80 98 08/16/20 09:30 86 98 08/16/20 09:27 86 91 08/16/20 09:25 78 98 08/16/20 09:20 90 98 08/16/20 09:15 96 H 89 08/16/20 09:07 199 H 93 08/16/20 09:05 69 98 08/16/20 09:00 70 98 08/16/20 08:55 71 99 08/16/20 08:51 71 146/79 08/16/20 08:50 72 98 08/16/20 08:45 69 98 08/16/20 08:40 71 98 08/16/20 08:35 69 98 08/16/20 08:30 74 99 08/16/20 08:25 70 100 08/16/20 08:20 70 99 08/16/20 08:15 71 100 08/16/20 08:10 67 99 08/16/20 08:05 69 98 08/16/20 08:03 81 90 08/16/20 08:00 73 100 08/16/20 07:55 73 100 08/16/20 07:50 70 100 08/16/20 07:45 74 100 08/16/20 07:40 74 100 08/16/20 07:35 74 99 08/16/20 07:30 73 100 12/12/20 07:25 77 100 12/12/20 07:20 76 98 12/12/20 07:15 78 99 1212/20 07:10 75 99 1212/20 07:09 73 157/78 121220 07:05 72 182/81 97 1212/20 07:00 83 98 1212/20 06:55 66 100 12/12/20 06:50 67 99 12/12/20 06:45 70 98 12/12/20 06:40 68 98 12/20 06:35 71 97 1212/20 06:30 70 97 1212/20 06:25 74 99 12/12/20 06:20 68 99 12/20 06:15 71 98 12/20 06:10 71 97 12/20 05:54 78 145/83 99 12/12/20 05:51 65 18 145/83 100 12/12/20 05:49 63 99 12/12/20 05:44 65 100 12/12/20 05:39 65 100 12/20 05:34 66 100 12/12/20 05:29 65 100 12/12/20 05:24 68 99 12/12/20 05:19 64 100 /12/20 05:14 67 99 12/12/20 05:09 67 99 12/20 05:04 65 99 1212/20 04:59 77 99 12/20 04:54 69 99 12/20 04:51 64 18 144/77 144/77 99 12/20 04:49 66 99 12/12/20 04:44 66 99 12/20 04:39 67 99 12/12/20 04:34 66 99 12/12/20 04:29 66 99 12/12/20 04:24 66 99 12/12/20 04:19 66 99 1212/20 04:14 67 100 1212/20 04:09 76 99 12/20 04:04 76 95 1212/20 03:59 68 99 1212/20 03:54 65 99 1212/20 03:51 98.5 F 67 18 149/75 149/75 99 12/12/20 03:49 66 99 1212/20 03:44 67 98 1212/20 03:39 68 98 12/12/20 03:34 68 100 1220 03:29 67 100 20 03:24 66 97 08/16/20 03:19 68 98 08/16/20 03:14 64 98 08/16/20 03:09 66 97 08/16/20 03:04 71 100 08/16/20 03:03 67 138/74 08/16/20 03:01 69 94 08/16/20 02:59 82 98 08/16/20 02:54 74 99 08/16/20 02:49 67 98 08/16/20 02:44 68 99 08/16/20 02:39 65 99 08/16/20 02:34 78 99 08/16/20 02:29 75 99 08/16/20 02:24 69 100 08/16/20 02:19 76 99 08/16/20 02:14 67 99 08/16/20 02:09 67 100 08/16/20 02:04 70 99 08/16/20 01:59 69 100 08/16/20 01:54 67 99 08/16/20 01:51 67 18 138/66 138/66 99 20 01:49 68 99 20 01:44 67 100 08/16/20 01:39 68 100 08/16/20 01:34 69 100 08/16/20 01:29 72 98 08/16/20 01:24 69 98 08/16/20 01:19 72 98 08/16/20 01:16 18 08/16/20 01:14 69 100 08/16/20 01:11 97.8 F 78 20 136/76 136/76 98 20 01:09 91 H 98 20 00:49 79 98 20 00:44 67 99 20 00:39 64 100 20 00:34 64 99 08/16/20 00:29 65 99 20 00:24 69 100 20 00:19 76 99 20 00:14 72 99 20 00:09 73 98 08/16/20 00:04 70 99 20 23:59 68 99 08/15/20 23:54 71 100 08/15/20 23:52 71 168/77 08/15/20 23:51 98.6 F 74 18 168/77 98 08/15/20 23:49 67 99 08/15/20 23:44 66 99 08/15/20 23:39 66 99 08/15/20 23:34 66 99 08/15/20 23:29 67 99 08/15/20 23:24 72 100 08/15/20 23:19 69 99 08/15/20 23:14 69 99 08/15/20 23:09 69 99 08/15/20 23:04 68 99 08/15/20 22:59 67 100 08/15/20 22:54 66 99 08/15/20 22:51 66 18 149/69 149/69 99 08/15/20 22:49 66 99 08/15/20 22:48 70 147/72 08/15/20 22:44 69 99 08/15/20 22:39 68 99 08/15/20 22:34 69 99 08/15/20 22:29 73 98 08/15/20 22:27 78 94 08/15/20 22:24 72 99 08/15/20 22:19 64 99 08/15/20 22:14 67 99 08/15/20 22:09 62 99 08/15/20 22:04 60 99 08/15/20 21:59 60 99 08/15/20 21:54 67 100 08/15/20 21:52 68 173/81 08/15/20 21:51 18 171/83 99 08/15/20 21:49 65 100 08/15/20 21:44 74 100 08/15/20 21:39 68 142/64 100 08/15/20 21:34 64 100 08/15/20 21:29 68 100 08/15/20 21:24 68 100 08/15/20 21:19 67 100 08/15/20 21:14 67 100 08/15/20 21:09 70 100 08/15/20 21:04 69 100 08/15/20 20:59 68 100 08/15/20 20:54 65 100 08/15/20 20:51 68 18 142/64 142/64 100 08/15/20 20:49 71 100 08/15/20 20:44 67 100 08/15/20 20:39 67 100 08/15/20 20:34 69 100 08/15/20 20:29 68 100 08/15/20 20:24 68 100 08/15/20 20:19 68 100 08/15/20 20:09 61 89 08/15/20 20:07 67 99 08/15/20 20:05 98.6 F 65 18 153/68 153/68 100 08/15/20 20:02 76 100 08/15/20 19:57 83 18 100 08/15/20 19:52 90 182/90 99 08/15/20 19:50 82 93 08/15/20 19:47 73 100 08/15/20 19:42 73 100 08/15/20 19:37 69 100 08/15/20 19:32 71 99 08/15/20 19:27 71 100 08/15/20 19:22 71 100 08/15/20 19:17 70 99 08/15/20 18:50 70 145/87 08/15/20 15:45 69 99 08/15/20 15:40 76 98 08/15/20 15:35 82 99 08/15/20 15:30 67 97 08/15/20 15:25 73 98 08/15/20 15:20 71 99 08/15/20 15:15 68 97 08/15/20 15:13 73 166/91 94 08/15/20 15:10 69 100 08/15/20 15:05 71 100 08/15/20 15:00 69 100 08/15/20 14:55 68 99 08/15/20 14:50 71 99 08/15/20 14:45 68 99 08/15/20 14:40 67 99 08/15/20 14:35 68 99 08/15/20 14:30 67 99 08/15/20 14:25 74 100 08/15/20 14:20 73 99 08/15/20 14:15 68 149/84 97 08/15/20 14:10 80 100 08/15/20 14:05 71 99 08/15/20 14:00 64 99 08/15/20 13:55 66 99 08/15/20 13:51 68 181/97 08/15/20 13:50 71 99 08/15/20 13:45 63 100 08/15/20 13:40 67 99 08/15/20 13:37 65 175/84 12/11/20 13:35 67 100 08/15/20 13:30 67 100 08/15/20 13:25 68 100 08/15/20 13:22 68 187/82 08/15/20 13:20 70 100 08/15/20 13:15 82 100 08/15/20 13:10 68 99 08/15/20 13:05 70 99 08/15/20 13:00 71 98 08/15/20 12:55 74 99 08/15/20 12:52 72 210/90 08/15/20 12:50 74 98 08/15/20 12:45 72 99 08/15/20 12:40 72 99 08/15/20 12:36 75 137/71 08/15/20 12:35 75 99 08/15/20 12:30 75 99 08/15/20 12:25 77 100 08/15/20 12:21 77 133/60 08/15/20 12:19 80 100 08/15/20 12:13 82 92 08/15/20 12:12 80 94 08/15/20 12:08 75 96 08/15/20 12:06 74 144/69 94 08/15/20 12:03 79 98 08/15/20 11:58 97 H 94 08/15/20 11:51 69 77 L 08/15/20 11:45 88 08/15/20 11:42 86 95 08/15/20 11:40 80 94 08/15/20 11:37 78 97 08/15/20 11:35 70 83 L 08/15/20 11:32 77 100 08/15/20 11:27 84 100 08/15/20 11:22 74 100 08/15/20 11:18 68 143/68 08/15/20 11:17 71 100 08/15/20 11:12 77 100 08/15/20 11:07 75 100 08/15/20 11:02 72 100 08/15/20 10:57 80 100 08/15/20 10:54 71 161/82 08/15/20 10:52 83 97 08/15/20 10:47 75 99 08/15/20 10:42 67 98 08/15/20 10:37 66 98 08/15/20 10:32 78 97 08/15/20 10:26 85 99 08/15/20 10:21 62 98 08/15/20 10:19 67 161/82 94 08/15/20 10:16 68 96 08/15/20 10:11 64 99 Intake and Output 08/15/20 08/16/20 08/16/20 23:59 07:59 15:59 Intake Total 2473.333 200 Output Total 500 1400 Balance 1972.333 -1200 Intake: IV 1972.333 Lactated Ringers 1,000 ml 1000 @ 125 mls/hr IV DIRECT LILY Rx#:[id number] MAGNESIUM SULFATE 40GM/ 973.333 1000ML 40 gm In 1,000 ml @ 2 GM/HR 50 mls/hr IV DIRECT LILY Rx#:[id number] Oral 500 200 Output: Urine 500 1400 Void 500 1400 Other: Total, Intake Amount 100 100 Total, Output Amount 250 600 # Voids Void 1 # Bowel Movements 1 - Exam Cardiovascular: Present: Regular rate Lungs: Present: Clear to auscultation Abdomen: Present: normal appearance, soft. Absent: distention, tenderness, gu arding, rigidity Uterus: Present: normal, firm, fundal height below umbilicus. Absent: bogginess, tenderness Extremities: Present: edema - Labs Labs: Abnormal lab results 08/15/20 08/16/20 08/16/20 Range/Units 18:55 00:49 00:49 Hgb 8.0 L (10.1-14.3) gm/dl Hct 24.2 L (30.3-42.9) % Magnesium 4.60 H 4.70 H (1.7-2.3) mg/dL
[2020-08-16] MEDS: oxyCODONE /ACETAMINOPHEN 5-325MG TAB PO PRN ×2 (10:20→19:22)
[2020-08-16] MEDS ORDERED: SIMETHICONE 80 MG CHEW TAB PO PRN (11:00)
--- NOTE | 2020-08-17 10:19 | Progress Note ---
Assessment and Plan A: day 2 S/P . Anemia. Severe preeclampsia. Nausea and epigastric pain. P: Repeat preE labs. Pepcid 20 mg po BID. Continue oral iron supplementation. Subjective - Subjective Date of service: 08/17/20 Principal diagnosis: day 2 S/P ; preeclampsia Interval history: day 2 S/P . Preeclampsia with severe features, S/P magnesium sulfate (was stopped yesterday). Anemia, on oral iron supplementation. Patient reports occasional blurry vision. Reports nausea and epigastric pain. Reports swelling in her hands and feet. No headache. Denies chest pain, shortness of breath, or leg pain. Reports small amount of lochia. Patient reports: appetite normal, voiding normally, pain well controlled, flatus, bowel movement, ambulating normally, nauseated : doing well Objective - Vital Signs Latest vital signs: Vital Signs Temp Pulse Resp BP BP Pulse Ox 08/17/20 08:13 97.8 F 68 20 152/78 99 08/17/20 04:06 97.8 F 70 20 146/76 98 08/17/20 00:13 98.4 F 78 20 134/66 99 08/16/20 22:23 123/63 08/16/20 20:15 98.5 F 79 20 123/63 98 08/16/20 16:12 97.3 F L 68 20 127/71 98 08/16/20 14:40 97.8 F 69 20 119/53 08/16/20 13:21 81 136/63 08/16/20 13:12 199 H 94 08/16/20 13:10 70 100 08/16/20 13:05 74 100 08/16/20 13:00 69 100 08/16/20 12:55 73 98 08/16/20 12:52 69 170/81 08/16/20 12:50 70 99 08/16/20 12:45 76 97 08/16/20 12:40 68 100 08/16/20 12:35 71 100 08/16/20 12:30 68 100 08/16/20 12:25 79 100 08/16/20 12:20 74 100 08/16/20 12:15 80 98 08/16/20 12:10 71 98 08/16/20 12:05 86 98 08/16/20 12:00 75 20 139/82 99 12/12/20 11:55 72 96 08/16/20 11:51 83 139/82 08/16/20 11:50 81 100 08/16/20 11:45 95 H 98 08/16/20 11:40 82 99 08/16/20 11:35 78 98 08/16/20 11:30 79 98 08/16/20 11:25 76 99 08/16/20 11:20 72 99 08/16/20 11:15 75 99 08/16/20 11:10 74 99 08/16/20 11:05 72 100 08/16/20 11:00 73 100 08/16/20 10:55 74 100 08/16/20 10:52 73 155/80 08/16/20 10:50 71 100 08/16/20 10:45 73 99 08/16/20 10:40 73 100 08/16/20 10:35 71 100 08/16/20 10:30 76 98 08/16/20 10:25 73 99 08/16/20 10:20 76 99 08/16/20 10:15 75 100 Intake and Output 08/16/20 08/17/20 08/17/20 23:59 07:59 15:59 Intake Total 240 240 120 Output Total 200 Balance 240 40 120 Intake: Oral 240 240 120 Output: Urine 200 Void 200 Other: Total, Intake Amount 240 240 120 Total, Output Amount 200 # Voids Void 2 - Exam Cardiovascular: Present: Regular rate Lungs: Present: Clear to auscultation Abdomen: Present: normal appearance, soft, normal bowel sounds. Absent: distention, tenderness, guarding, rigidity Uterus: Present: normal, firm, fundal height below umbilicus. Absent: bogginess, tenderness Extremities: Present: edema (mild bilateral dependent edema). Absent: tenderness - Labs Labs: Abnormal lab results 08/16/20 Range/Units 09:42 Magnesium 5.10 H (1.7-2.3) mg/dL
[2020-08-17] MEDS: FERROUS SULFATE 325 MG TAB PO SCH ×2 (10:37→22:06)
[2020-08-17] MEDS: ACETAMINOPHEN 325 MG TAB PO PRN (12:42)
[2020-08-17 15:16] LABS: Basophils % (Auto) 0.2 % (0.0-1.8); Eosinophils # (Auto) 0.2 K/mm3 (0.0-0.4); Eosinophils % (Auto) 2.3 % (0.0-4.3); Hematocrit 25.5 % (30.3-42.9); Hemoglobin 8.3 gm/dl (10.1-14.3); Lymphocytes # (Auto) 2.5 K/mm3 (1.2-5.4); Lymphocytes % (Auto) 25.1 % (13.4-35.0); Mean Corpuscular HGB Conc 32 % (30-34); Mean Corpuscular Volume 79 fl (79-97); Monocytes # (Auto) 0.4 K/mm3 (0.0-0.8); Monocytes % (Auto) 4.4 % (0.0-7.3); Platelet Count 282 K/mm3 (140-440); Red Blood Count 3.22 M/mm3 (3.65-5.03); Red Cell Distribution Width 14.1 % (13.2-15.2)
[2020-08-17 15:36] LABS: Alanine Aminotransferase 11 units/L (7-56); Albumin 3.1 g/dL (3.9-5); Blood Urea Nitrogen 10 mg/dL (7-17); Calcium 8.8 mg/dL (8.4-10.2); Hemolysis Index 1
[2020-08-17 15:39] LABS: BUN/Creatinine Ratio 17
[2020-08-17] MEDS: FAMOTIDINE 20 MG TAB PO SCH ×2 (16:12→22:09)
[2020-08-17] MEDS: oxyCODONE /ACETAMINOPHEN 5-325MG TAB PO PRN (20:15)
--- NOTE | 2020-08-18 07:38 | Event Note ---
Date: 08/18/20 Patient reports the pepcid did not help her epigastric pain. She denies dizziness. Also now reports a cough and body aches. Coronavirus test pending. Flu swab ordered, hep panel, abdominal us, and chest x-ray ordered. BPs stable on Labetalol. PreE labs negative. Patient denies headache and states that blurry vision has resolved. Report passed on to oncoming shore hand dredge or barge and to patient's nurse.
--- NOTE | 2020-08-18 08:36 | XRay Report ---
XR chest routine 2V INDICATION / CLINICAL INFORMATION: cough COMPARISON: None available. FINDINGS: SUPPORT DEVICES: None. HEART / MEDIASTINUM: No significant abnormality. LUNGS / PLEURA: Hazy opacity in the middle/lower lung zones spell to represent overlying soft tissue Lungs are clear. Costophrenic sulci are sharp. No pneumothorax. ADDITIONAL FINDINGS: No significant additional findings. IMPRESSION: 1. No acute findings. Signer Name: Braden Renee MD Signed: 08/18/2020 8:31 AM Workstation Name: [id number]
--- NOTE | 2020-08-18 10:22 | Ultrasound Report ---
ULTRASOUND ABDOMEN, LIMITED (RIGHT UPPER QUADRANT) INDICATION: Epigastric pain, , obesity. COMPARISON: None available. FINDINGS: Pancreas: Visualized portion shows no significant abnormality. Liver: Enlarged at 22 cm craniocaudal. The liver echogenicity is slightly heterogeneous. Gallbladder: Normal. Bile ducts: Normal. Common Bile Duct measures 3 mm. Free fluid: None. Additional Findings: None. IMPRESSION: Enlarged borderline fatty liver. Signer Name: Cristhian Francis MD Signed: 08/18/2020 10:17 AM Workstation Name: [id number]
[2020-08-18] MEDS: oxyCODONE /ACETAMINOPHEN 5-325MG TAB PO PRN (11:55)
[2020-08-18] MEDS: FAMOTIDINE 20 MG TAB PO SCH ×2 (12:01→23:14)
[2020-08-18] MEDS: FERROUS SULFATE 325 MG TAB PO SCH ×2 (12:02→23:14)
[2020-08-18] MEDS ORDERED: medroxyPROGESTERone ACETATE 150 MG/ML SYRINGE IM ONE (12:08)
--- NOTE | 2020-08-18 12:34 | Progress Note ---
Assessment and Plan PPD #2 S: "I'm fine" Pt denies cough, body aches, or sob this am. 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 Pt denied bauman, visual problems or epigastric pain. She admitted to active FM. 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 Her GBS is neg. No other information is available at this time. Pt's b/p was severely elevated. She was admitted to L&D for MgSo4 therapy and Pitocin induction r/t severe preeclampsia. POC was notified of pt's condition. Patient reports: appetite normal, voiding normally, pain well controlled, flatus, bowel movement, ambulating normally [place]: doing well, in NICU Objective - Vital Signs Latest vital signs: Vital Signs Temp Pulse Resp BP Pulse Ox 08/18/20 08:00 97.6 F 69 18 130/84 98 08/18/20 04:47 98.0 F 66 18 141/69 99 08/18/20 02:26 97.7 F 73 18 152/74 98 08/17/20 22:09 84 150/74 08/17/20 20:46 98.4 F 64 18 156/71 99 08/17/20 20:15 16 08/17/20 16:08 97.8 F 76 20 148/63 98 Intake and Output 08/17/20 08/18/20 08/18/20 22:59 06:59 14:59 Intake Total 240 360 Balance 240 360 Intake: Oral 240 Intake, Free Water 360 Other: Total, Intake Amount 240 # Voids Void 1 1 # Bowel Movements 1 - Exam Breasts: Present: normal Lungs: Present: Clear to auscultation, Normal air movement, Other (CTA PAOLO LUNG LOPEZ) Abdomen: Present: normal appearance, soft, normal bowel sounds Vulva: both: normal Uterus: Present: normal, firm, fundal height below umbilicus Extremities: Present: normal - Labs Labs: Abnormal lab results 08/17/20 08/17/20 Range/Units 14:55 14:55 RBC 3.22 L (3.65-5.03) M/mm3 Hgb 8.3 L (10.1-14.3) gm/dl Hct 25.5 L (30.3-42.9) % MCH 26 L (28-32) pg Potassium 3.5 L (3.6-5.0) mmol/L Glucose 157 H (65-100) mg/dL Lactate Dehydrogenase 186 H (91-180) units/L Total Protein 5.9 L (6.3-8.2) g/dL Albumin 3.1 L (3.9-5) g/dL
[2020-08-18] MEDS ORDERED: hydrALAZINE 20 MG/1 ML INJ IV ONE (17:18)
[2020-08-19 00:41] LABS: Basophils % (Auto) 0.2 % (0.0-1.8); Eosinophils # (Auto) 0.2 K/mm3 (0.0-0.4); Eosinophils % (Auto) 2.3 % (0.0-4.3); Hematocrit 22.9 % (30.3-42.9); Hemoglobin 7.5 gm/dl (10.1-14.3); Lymphocytes # (Auto) 2.4 K/mm3 (1.2-5.4); Lymphocytes % (Auto) 24.8 % (13.4-35.0); Mean Corpuscular HGB Conc 33 % (30-34); Mean Corpuscular Volume 79 fl (79-97); Monocytes # (Auto) 0.4 K/mm3 (0.0-0.8); Monocytes % (Auto) 4.5 % (0.0-7.3); Platelet Count 274 K/mm3 (140-440); Red Blood Count 2.92 M/mm3 (3.65-5.03)
[2020-08-19 00:44] LABS: Alanine Aminotransferase 15 units/L (7-56); Blood Urea Nitrogen 10 mg/dL (7-17); Hemolysis Index 2
[2020-08-19 00:47] LABS: BUN/Creatinine Ratio 20
[2020-08-19] MEDS: ACETAMINOPHEN 325 MG TAB PO PRN ×2 (04:26→16:38)
[2020-08-19] MEDS: NIFEdipine XL 30 MG TAB PO SCH (10:05)
[2020-08-19] MEDS: FERROUS SULFATE 325 MG TAB PO SCH ×4 (10:05→23:29)
[2020-08-19] MEDS: FAMOTIDINE 20 MG TAB PO SCH ×3 (11:06→22:45)
[2020-08-19] MEDS ORDERED: BENZOCAINE/MENTHOL 20/0.5% TOP SPRAY 56 GM TP PRN (14:48)
--- NOTE | 2020-08-19 16:20 | Progress Note ---
Assessment and Plan - Patient Problems (1) Severe preeclampsia Current Visit: Yes Status: Acute Plan to address problem: Titrating BPs meds. On nifedipine 30mg XL (started today), titrate labetolol to 300mg q8hrs. --Continue to monitor for s/sx SPE. s/p Mag --Dispo pending improvement of BPs (2) Status post normal vaginal delivery Current Visit: No Status: Acute Plan to address problem: --Meeting goals --Continue to monitor Subjective - Subjective Date of service: 08/19/20 Principal diagnosis: day 4 S/P ; preeclampsia Interval history: Patient reports that she is feeling okay. Still has pain with movement. She reports that BP is usually taken after moving which can be worsening BPs. Also reports primary laying on arm that she having BP taken. Urinating spontaneously. Passing flatus. Tolerating po. Baby in doing okay. Still not wanting to eat on own, still getting NG tube feeds. [place]: doing well, in NICU Objective - Vital Signs Latest vital signs: Vital Signs Temp Pulse Resp BP BP Pulse Ox 08/19/20 14:40 80 16 152/83 100 08/19/20 12:28 83 156/77 100 08/19/20 07:53 97.9 F 71 18 170/84 99 08/19/20 04:22 74 136/61 08/19/20 04:20 74 136/61 08/18/20 23:36 98.5 F 93 H 20 142/71 96 08/18/20 20:28 168/85 08/18/20 20:02 68 98 08/18/20 20:01 98.5 F 20 168/85 08/18/20 18:10 72 18 171/73 99 Intake and Output 08/19/20 08/19/20 08/19/20 07:59 15:59 23:59 Intake Total 120 120 Balance 120 120 Intake: Oral 120 120 Other: Total, Intake Amount 120 120 # Voids Void 1 1 - Exam Abdomen: Present: normal appearance, normal bowel sounds Uterus: Present: normal, firm Incision: Present: normal - Labs Labs: Abnormal lab results 08/18/20 08/18/20 Range/Units 23:37 23:37 RBC 2.92 L (3.65-5.03) M/mm3 Hgb 7.5 L (10.1-14.3) gm/dl Hct 22.9 L (30.3-42.9) % MCH 26 L (28-32) pg Creatinine 0.5 L (0.6-1.2) mg/dL Glucose 173 H (65-100) mg/dL Total Protein 6.0 L (6.3-8.2) g/dL Albumin 3.0 L (3.9-5) g/dL
[2020-08-19] MEDS ORDERED: KETOROLAC 30 MG/1 ML INJ IV ONE (16:25)
[2020-08-20] MEDS: oxyCODONE /ACETAMINOPHEN 5-325MG TAB PO PRN (00:47)
[2020-08-20] MEDS: ACETAMINOPHEN 325 MG TAB PO PRN (09:57)
[2020-08-20] MEDS: FAMOTIDINE 20 MG TAB PO SCH ×2 (10:00→21:50)
[2020-08-20] MEDS: FERROUS SULFATE 325 MG TAB PO SCH ×2 (10:00→21:53)
[2020-08-20] MEDS: NIFEdipine XL 30 MG TAB PO SCH (10:00)
--- NOTE | 2020-08-20 13:27 | Event Note ---
Date: 08/20/20 PT is day 5 and is on Labetalol 300 mg TID along with Procardia daily. PT had a BP spike earlier this morning of 190's/100s. IV labetalol x 1 given and BP was back to 150's-160s/90s-100s and pt was asymptomatic. RN called because pt is having a new onset left facial droop. No CP/SOB/palpitations or GRECO though. No blurred vision. BP now measured at 238/135. As a result, Stroke team called STAT to assess the pt.
--- NOTE | 2020-08-20 13:58 | Cat Scan Report ---
CT HEAD WITHOUT CONTRAST INDICATION / CLINICAL INFORMATION: Code stroke, facial droop, hypertensive urgency. TECHNIQUE: Axial imaging performed from the skull apex through the skull base without the use of cont rast. Sagittal and coronal reformatted images. All CT scans at this location are performed using CT dose reduction for ALARA by means of automated exposure control. COMPARISON: None available. FINDINGS: CEREBRAL PARENCHYMA: No significant abnormality. No acute territorial infarct. HEMORRHAGE: None. EXTRA-AXIAL SPACES: Normal in size and morphology for the patient's age. VENTRICULAR SYSTEM: Normal in size and morphology for the patient's age. MIDLINE SHIFT OR HERNIATION: None. CEREBELLUM / BRAINSTEM: No significant abnormality. CALVARIUM: No significant abnormality. ORBITS: Normal as visualized. PARANASAL SINUSES / MASTOID AIR CELLS: Normal as visualized. SOFT TISSUES of HEAD: No significant abnormality. ADDITIONAL FINDINGS: None. IMPRESSION: No acute intracranial abnormality. These findings were discussed with Dr. García at 1354 hours Eastern standard time. Signer Name: Dank Ferrara Jr, MD Signed: 08/20/2020 1:54 PM Workstation Name: [id number]
--- NOTE | 2020-08-20 14:23 | Consultation ---
History of Present Illness Consult date: 08/20/20 Reason for Consult: Stroke Alert Chief complaint: Left Facial Droop History of present illness: [facility] TeleStroke Metrics: LKW: 1230 Door Time: N/A [facility] Contacted: 1337 [facility] at Bedside: 1345 NIHSS: 1352 Decision on Alteplase: Not to give as her NIH stroke scale score is currently 0. Interventional Candidate: Not a candidate as her symptoms are not consistent with a large vessel proximal occlusion. Chief Complaint: Left facial droop HPI: Asked to see this patient in emergent telemedicine consultation utilizing interactive audio and video technologies. Consultation was performed with assistance of ancillary / medical staff at bedside. Verbal consent to perform the examination with telemedicine was obtained. Patient agreed to proceed with the consultation for acute stroke protocol. 30-year-old right-handed -[place] female who was admitted to the hospital on 08/14 for elevated blood pressures and preeclampsia. She underwent vaginal delivery the next day on 08/15. Her prolonged hospitalization has been due to persistent elevations in her blood pressures. Patient does not take any blood thinners or aspirin currently. She has never had a stroke or migraine. Patient has been frustrated about being in the hospital so long. Patient states that she had felt fine all morning. She was able to do her make- up this morning and did not notice any facial asymmetries. According to the patient's nurse, she was fine around 12:30 PM. Then at some point the had noticed a left facial droop. Patient went to go notify her nurse around 1:20 PM, and the nurse reported a clear left facial droop. On repeat blood pressure check it was 235/138. Because of her neurologic symptoms, an inpatient stroke alert was initiated. Currently on examination, the patient had no focal motor or sensory deficit. No headache or chest pain. No aphasia or slurred speech. I did not appreciate any severe left facial drooping or asymmetry. Patient's nurse noted that her left facial droop had improved but was still present. We then had the patient look at herself on a cell phone, and the patient states that her smile is at its baseline. Head CT showed no acute hemorrhage or mass. I reviewed with the patient about the availability of IV alteplase. I reviewed with her about some of the potential side effects of IV alteplase to include an approximate 6% risk of symptomatic intracranial hemorrhage, internal bleeding, and/or angioedema. At the end of the day, patient was in agreement with not to proceed with IV alteplase administration as currently she feels she is at her baseline. She was in agreement with a more conservative approach. PMH: Hypertension SOC: Negative x3. Patient is . FMH: Negative for stroke. Positive for diabetes mellitus and heart disease. ROS: 13 point review of systems were reviewed with the patient, and are all negative with the exception of the aforementioned in the history of present illness. VS: Pulse 117, blood pressure 238/135, oxygen saturation 97%, weight 136 kg Exam: Patient is in no apparent distress. Patient appears as stated age. No obvious acute respiratory or cardiac distress. Patient is well groomed and well-nourished. 1a- LOC: Keenly responsive - 0 1b- LOC questions: Answers both questions correctly - 0 1c- LOC commands- Performs both tasks correctly- 0 2- Gaze: Normal; no gaze paresis or gaze deviation - 0 3- Visual Bennett: normal, no Visual field deficit - 0 4- Facial movements: No facial palsy - 0 5- Upper limb motor No arm drift - 0 6- Lower limb motor No leg drift - 0 7- Limb Coordination: absent ataxia - 0 8- Sensory: no sensory loss - 0 9- Language - No aphasia - 0 10- Speech - No dysarthria - 0 11- Neglect / Extinction - none found - 0 NIHSS score: 0 Diagnostic Data: Blood glucose 90 CT head showed no acute intracranial hemorrhage, mass, or large territory stroke Medical Data Reviewed: 1.Data?reviewed include clinical labs, radiology,?and medical tests; 2.Tests?results discussed w/performing or interpreting physician; 3.Obtaining/reviewing old medical records; 4.Obtaining?case history from another source; 5.Independent?review of image, tracing, or specimen. Medical Decision Making: - Extensive number of diagnosis or management options are considered below. - Extensive amount of complex data reviewed. - High risk of complication and/or morbidity or mortality are associated with differential diagnostic considerations below. - There may be?uncertain?outcome and increased probability of prolonged functional impairment or high probability of severe prolonged functional impairment associated with some of these differential diagnosis. Differential Diagnosis for Stroke: 1.?Cardioembolic?stroke 2. Small vessel disease/lacune 3. Thromboembolic, [id number] mechanism 4.?Hypercoagulable?state-related infarct 5. Transient ischemic attack 6. Thrombotic mechanism, large artery disease Assessment: 1. Possible right MCA TIA versus hypertensive urgency 2. Hypertension Recommendations: Consult the patient on full dose aspirin if okay with OB Consult inpatient neurology team to assist with evaluation and management Okay to maintain systolic blood pressure to be less than 180 and diastolic blood pressure less than 90 to cover the possibility of hypertensive urgency Check MRI brain without contrast to rule out any acute intracranial process Check MRA of the head and neck without contrast to better evaluate her intracranial and extracranial blood vessels Check echocardiogram to gauge her cardiac function Maintain the patient on telemetry to look for paroxysmal atrial fibrillation Check hemoglobin A1c and lipid panel Patient does not require any rehab services as she is currently at her baseline Continue supportive care Plan of care was discussed with the patient Thank you for allowing [facility] to participate in the care of your patient. Please call me, Dr. Ibarra, with any questions at [phone]. Case discussed with the bell staff and OB attending. Critical Care notation: I was called to see this critical patient emergently. I personally evaluated this critical patient for acute stroke evaluation, and determining their eligibility for IV Alteplase and interventional therapies. I have spent approximately 18 minutes with the patient, including time at bedside, time discussing the case with other physicians, reviewing plan of care, and time independently reviewing the records and scans. Past History Social history: Medications and Allergies Allergies Allergy/AdvReac Type Severity Reaction Status Date / Time No Known Allergies Allergy Verified 03/28/19 17:03 Home Medications Medication Instructions Recorded Confirmed Last Taken Type Ferrous Sulfate [Feosol 325 MG tab] 325 mg PO BID #60 tablet 05/07/19 08/15/20 Unknown Rx labetaloL [Labetalol 100mg TAB] 300 mg PO BID #60 tablet 05/07/19 08/15/20 Unknown Rx Acetaminophen/Codeine [Tylenol 1 tab PO Q6H PRN #10 tab 03/17/20 08/15/20 Unknown Rx /Codeine # 3 tab] Active Meds: Active Medications Acetaminophen (Acetaminophen 325 Mg Tab) 650 mg PO Q4H PRN PRN Reason: Pain, Mild (1-3) Last Admin: 08/20/20 09:57 Dose: 650 mg Documented by: Benzocaine/Menthol (Benzocaine/Menthol 20/0.5% [place] 56 Gm) 1 spray TP TID PRN PRN Reason: Agitation Calcium Carbonate/Glycine (Calcium Carbonate 500 Mg Tab Chew) 500 mg PO Q4H PRN PRN Reason: Indigestion Last Admin: 08/16/20 01:25 Dose: 500 mg Documented by: Famotidine (Famotidine 20 Mg Tab) 20 mg PO BID [facility] Last Admin: 08/20/20 10:00 Dose: 20 mg Documented by: Ferrous Sulfate (Ferrous Sulfate 325 Mg Tab) 325 mg PO BID [facility] Last Admin: 08/20/20 10:00 Dose: 325 mg Documented by: Sodium Chloride (Nacl 0.9% 1000 Ml) 1,000 mls @ 0 mls/hr VG DIRECT [facility] Labetalol HCl (Labetalol 100 Mg Tab) 300 mg PO Q8HR [facility] Last Admin: 08/20/20 07:13 Dose: 300 mg Documented by: Multi-Ingredient Ointment (Lanolin/Zinc/Dimethicone (Lansinoh) 7 Gm) 1 applic TP PRN PRN PRN Reason: Sore Nipples Last Admin: 08/17/20 10:38 Dose: 1 applic Documented by: Nifedipine (Nifedipine Xl 30 Mg Tab) 30 mg PO QDAY [facility] Last Admin: 08/20/20 10:00 Dose: 30 mg Documented by: Oxycodone/Acetaminophen (Oxycodone /Acetaminophen 5-325mg Tab) 2 tab PO Q8H PRN PRN Reason: Pain, Moderate (4-6) Last Admin: 08/20/20 00:47 Dose: 2 tab Documented by: Simethicone (Simethicone 80 Mg Chew Tab) 80 mg PO Q6H PRN PRN Reason: Gas pain Last Admin: 08/16/20 10:21 Dose: 80 mg Documented by: Witch Rosibel/Glycerin (Witch Rosibel/ Glycerin Pad) 1 each TP PRN PRN PRN Reason: Hemorrhoid/cleansing/soothing Physical Examination - Vital Signs Vital Signs: Vital Signs Pulse BP 75 183/75 08/14/20 18:52 08/14/20 18:52 Results - Laboratory Findings CBC and BMP: 08/18/20 23:37 08/18/20 23:37 Abnormal Lab Findings: Abnormal Labs 08/14/20 08/14/20 08/15/20 19:20 19:20 18:55 RBC 3.40 L Hgb 8.7 L Hct 26.5 L MCV 78 L MCH 26 L Potassium Creatinine 0.5 L Glucose Magnesium 4.60 H Lactate Dehydrogenase 194 H Total Protein Albumin 08/16/20 08/16/20 08/16/20 00:49 00:49 09:42 RBC Hgb 8.0 L Hct 24.2 L MCV MCH Potassium Creatinine Glucose Magnesium 4.70 H 5.10 H Lactate Dehydrogenase Total Protein Albumin 08/17/20 08/17/20 08/18/20 14:55 14:55 23:37 RBC 3.22 L 2.92 L Hgb 8.3 L 7.5 L Hct 25.5 L 22.9 L MCV MCH 26 L 26 L Potassium 3.5 L Creatinine Glucose 157 H Magnesium Lactate Dehydrogenase 186 H Total Protein 5.9 L Albumin 3.1 L 08/18/20 23:37 RBC Hgb Hct MCV MCH Potassium Creatinine 0.5 L Glucose 173 H Magnesium Lactate Dehydrogenase Total Protein 6.0 L Albumin 3.0 L
[2020-08-20 16:45] LABS: Hematocrit 26.7 % (30.3-42.9); Hemoglobin 8.8 gm/dl (10.1-14.3); Mean Corpuscular HGB Conc 33 % (30-34); Mean Corpuscular Volume 79 fl (79-97); Platelet Count 310 K/mm3 (140-440); Red Cell Distribution Width 14.1 % (13.2-15.2)
[2020-08-20 16:58] LABS: Partial Thromboplastin Time 27.3 Sec. (24.2-36.6); Thrombin Time 14.3 Sec. (15.1-19.6)
[2020-08-20 17:04] LABS: Blood Urea Nitrogen 11 mg/dL (7-17); Calcium 9.5 mg/dL (8.4-10.2); Hemolysis Index 0
[2020-08-20 17:05] LABS: BUN/Creatinine Ratio 18
[2020-08-20] MEDS: hydrALAZINE 25 MG TAB PO SCH (18:53)
--- NOTE | 2020-08-20 20:56 | Event Note ---
Date: 08/20/[address] head earlier today did not show any evidence of hemorrhagic stroke. Per RN, pt is still not having any concerning sxs regarding her BPs but they are have stayed significantly elevated despite multiple tx's with IV Labetalol. As a result, IM hospitalist was called to consult and assist with BP control as well as to determine which of the recommended tests from the neuro consult should be done since the pt is asymptomatic.
[2020-08-21] MEDS: hydrALAZINE 25 MG TAB PO SCH ×2 (00:34→14:56)
--- NOTE | 2020-08-21 06:08 | Consultation ---
History of Present Illness - Reason for Consult Consult date: 08/20/20 Medical management Requesting physician: GOPAL QUEVEDO - History of Present Illness 30 y/o AA female was [facility] [place] office r/t severe preeclampsia. Pt denied bauman, visual problems or epigastric pain. She admitted to active FM. 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 Her GBS is neg. No other information is available at this time. Pt's b/p was severely elevated. She was admitted to L&D for MgSo4 therapy and Pitocin induction r/t severe preeclampsia. POC was notified of pt's condition. Medicine consult was requested for management of hypertension and rule out cerebrovascular accident Patient blood pressure is very high in the 180s/110. No neurologic deficits. 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 Family/Genetic History: diabetes, heart disease Social history: - Obstetrical History Expected Date of Delivery: 09/15/20 Actual Gestation: 35 Week(s) 3 Day(s) : 5 Para: 2 Hx # Term Pregnancies: 2 Number of Pregnancies: 0 Spontaneous Abortions: 2 Induced : 0 Number of Living Children: 2 Medications and Allergies Allergies Allergy/AdvReac Type Severity Reaction Status Date / Time No Known Allergies Allergy Verified 03/28/19 17:03 Home Medications Medication Instructions Recorded Confirmed Last Taken Type Ferrous Sulfate [Feosol 325 MG tab] 325 mg PO BID #60 tablet 05/07/19 Unknown Rx labetaloL [Labetalol 100mg TAB] 300 mg PO BID #60 tablet 05/07/19 Unknown Rx Acetaminophen/Codeine [Tylenol 1 tab PO Q6H PRN #10 tab 03/17/20 Unknown Rx /Codeine # 3 tab] Active Meds: Active Medications Acetaminophen (Acetaminophen 325 Mg Tab) 650 mg PO Q4H PRN PRN Reason: Pain, Mild (1-3) Butorphanol Tartrate (Butorphanol 2 Mg/1 Ml Inj) 1 mg IV Q2H PRN PRN Reason: Pain, Moderate(4-6) LABOR PAIN Butorphanol Tartrate (Butorphanol 2 Mg/1 Ml Inj) 2 mg IV Q2H PRN PRN Reason: Pain , Severe (7-10) Ephedrine Sulfate (Ephedrine Sulfate 50 Mg/1 Ml Inj) 10 mg IV Q2M PRN PRN Reason: Hypotension Lactated Ringer's (Lactated Ringers) 1,000 mls @ 125 mls/hr IV DIRECT LILY Last Admin: 08/14/20 19:17 Dose: 125 mls/hr Documented by: Magnesium Sulfate (Magnesium Sulfate 40gm/1000ml) 40 gm in 1,000 mls @ 50 mls/hr IV DIRECT LILY Magnesium Sulfate (Magnesium Sulfate 4gm/100ml) 4 gm in 100 mls @ 300 mls/hr IV ONCE ONE Stop: 08/14/20 20:19 Mineral Oil (Mineral Oil 30 Ml Oral Liqd) 30 ml PO QHS PRN PRN Reason: Constipation Ondansetron HCl (Ondansetron 4 Mg/2 Ml Inj) 4 mg IV Q8H PRN PRN Reason: Nausea And Vomiting Terbutaline Sulfate (Terbutaline 1 Mg/1 Ml Inj) 0.25 mg SUB-Q ONCE PRN PRN Reason: Hyperstimulation/Hypertonicity Review of Systems All systems: negative Eyes: deferred Ears, nose, mouth and throat: deferred Breasts: normal Gastrointestinal: heartburn Genitourinary: normal appearance Rectal Exam: deferred Past History Social history: Medications and Allergies Allergies Allergy/AdvReac Type Severity Reaction Status Date / Time No Known Allergies Allergy Verified 03/28/19 17:03 Home Medications Medication Instructions Recorded Confirmed Last Taken Type Ferrous Sulfate [Feosol 325 MG tab] 325 mg PO BID #60 tablet 05/07/19 08/15/20 Unknown Rx labetaloL [Labetalol 100mg TAB] 300 mg PO BID #60 tablet 05/07/19 08/15/20 Unknown Rx Acetaminophen/Codeine [Tylenol 1 tab PO Q6H PRN #10 tab 03/17/20 08/15/20 Unknown Rx /Codeine # 3 tab] Active Meds: Active Medications Acetaminophen (Acetaminophen 325 Mg Tab) 650 mg PO Q4H PRN PRN Reason: Pain, Mild (1-3) Last Admin: 08/20/20 09:57 Dose: 650 mg Documented by: Benzocaine/Menthol (Benzocaine/Menthol 20/0.5% [place] 56 Gm) 1 spray TP TID PRN PRN Reason: Agitation Calcium Carbonate/Glycine (Calcium Carbonate 500 Mg Tab Chew) 500 mg PO Q4H PRN PRN Reason: Indigestion Last Admin: 08/16/20 01:25 Dose: 500 mg Documented by: Famotidine (Famotidine 20 Mg Tab) 20 mg PO BID [facility] Last Admin: 08/20/20 21:50 Dose: 20 mg Documented by: Ferrous Sulfate (Ferrous Sulfate 325 Mg Tab) 325 mg PO BID [facility] Last Admin: 08/20/20 21:53 Dose: 325 mg Documented by: Hydralazine HCl (Hydralazine 25 Mg Tab) 50 mg PO Q8HR [facility] Last Admin: 08/21/20 00:34 Dose: 50 mg Documented by: Sodium Chloride (Nacl 0.9% 1000 Ml) 1,000 mls @ 0 mls/hr VG DIRECT [facility] Labetalol HCl (Labetalol 100 Mg Tab) 300 mg PO Q8HR [facility] Last Admin: 08/20/20 21:50 Dose: 300 mg Documented by: Labetalol HCl (Labetalol 20 Mg/4 Ml Inj) 10 mg IV Q3H PRN PRN Reason: Blood Pressure Last Admin: 08/20/20 21:44 Dose: 10 mg Documented by: Multi-Ingredient Ointment (Lanolin/Zinc/Dimethicone (Lansinoh) 7 Gm) 1 applic TP PRN PRN PRN Reason: Sore Nipples Last Admin: 08/17/20 10:38 Dose: 1 applic Documented by: Nifedipine (Nifedipine Xl 30 Mg Tab) 30 mg PO QDAY [facility] Last Admin: 08/20/20 10:00 Dose: 30 mg Documented by: Oxycodone/Acetaminophen (Oxycodone /Acetaminophen 5-325mg Tab) 2 tab PO Q8H PRN PRN Reason: Pain, Moderate (4-6) Last Admin: 08/20/20 00:47 Dose: 2 tab Documented by: Simethicone (Simethicone 80 Mg Chew Tab) 80 mg PO Q6H PRN PRN Reason: Gas pain Last Admin: 08/16/20 10:21 Dose: 80 mg Documented by: Witch Rosibel/Glycerin (Witch Rosibel/ Glycerin Pad) 1 each TP PRN PRN PRN Reason: Hemorrhoid/cleansing/soothing Exam - Constitutional Vitals: Temp Pulse Resp BP Pulse Ox 98.6 F 98 H 20 149/85 98 08/21/20 04:00 08/21/20 04:00 08/21/20 04:00 08/21/20 04:00 08/21/20 04:00 General appearance: Present: no acute distress, well-nourished - EENT Eyes: Present: PERRL ENT: hearing intact, clear oral mucosa - Neck Neck: Present: supple, normal ROM - Respiratory Respiratory effort: normal Respiratory: bilateral: CTA - Cardiovascular Heart rate: 88 Rhythm: regular Heart Sounds: Present: S1 & S2. Absent: rub, click - Extremities Extremities: pulses symmetrical, No edema Peripheral Pulses: within normal limits - Abdominal General gastrointestinal: Present: soft, non-tender, distended (Secondary to of 35 weeks gestation), normal bowel sounds Female genitourinary: Present: normal - Integumentary Integumentary: Present: clear, warm, dry - Musculoskeletal Musculoskeletal: gait normal, strength equal bilaterally - Psychiatric Psychiatric: appropriate mood/affect, intact judgment & insight - Neurologic Neurologic: CNII-XII intact, moves all extremities Results - Labs CBC & Chem 7: 08/20/20 15:55 08/20/20 15:55 Labs: Abnormal lab results 08/20/20 08/20/20 08/20/20 Range/Units 15:55 15:55 15:55 RBC 3.40 L (3.65-5.03) M/mm3 Hgb 8.8 L (10.1-14.3) gm/dl Hct 26.7 L (30.3-42.9) % MCH 26 L (28-32) pg Thrombin Time 14.3 L (15.1-19.6) Sec. Glucose 122 H (65-100) mg/dL Short CBC 08/20/20 Range/Units 15:55 WBC 10.1 (4.5-11.0) K/mm3 Hgb 8.8 L (10.1-14.3) gm/dl Hct 26.7 L (30.3-42.9) % Plt Count 310 (140-440) K/mm3 BMP 08/20/20 15:55 Sodium 141 Potassium 4.2 Chloride 103.2 Carbon Dioxide 28 BUN 11 Creatinine 0.6 Glucose 122 H Calcium 9.5 Assessment and Plan - Patient Problems (1) Hypertensive emergency Current Visit: Yes Status: Acute Plan to address problem: Add hydralazine 50 mg every 8 nhours Continue labetalol 300 p.o. 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
--- NOTE | 2020-08-21 09:35 | Progress Note ---
Subjective - Subjective Date of service: 08/21/20 Principal diagnosis: day 6 S/P ; preeclampsia Interval history: uncontrolled CHTN with SI severe pre-eclampsia BP's improved<160/110 on labetalol and hydrlazine No complaints Facial droop noted yesterday resolved spontaneously. Wants to go home on antihypertensives today Sequelae of PE and hypertensive emergency reviewed to include but not limited to CVA, [place] and maternal Will await recommendations per IM And monitor BP's though out the day. I do not believe MRI is necessary as pt exhibits no focal or global neurological deficits Objective - Vital Signs Vital Signs: Vital Signs - 12hr 08/20/20 08/20/20 08/21/20 21:44 21:50 00:00 Temperature 98.2 F Pulse Rate 83 88 Respiratory 20 Rate Blood Pressure 166/97 166/97 Blood Pressure 156/85 [Right] O2 Sat by Pulse 99 Oximetry 08/21/20 08/21/20 08/21/20 00:34 04:00 07:46 Temperature 98.6 F Pulse Rate 98 H Respiratory 20 Rate Blood Pressure 146/85 154/100 Blood Pressure 149/85 [Right] O2 Sat by Pulse 98 Oximetry - Exam Breasts: deferred Cardiovascular: Regular rate Lungs: Clear to auscultation Abdomen: Present: normal appearance, soft Uterus: Present: normal, fundal height below umbilicus - Labs Labs: Abnormal Labs 08/14/20 08/14/20 08/15/20 19:20 19:20 18:55 RBC 3.40 L Hgb 8.7 L Hct 26.5 L MCV 78 L MCH 26 L Thrombin Time Potassium Creatinine 0.5 L Glucose Magnesium 4.60 H Lactate Dehydrogenase 194 H Total Protein Albumin 08/16/20 08/16/20 08/16/20 00:49 00:49 09:42 RBC Hgb 8.0 L Hct 24.2 L MCV MCH Thrombin Time Potassium Creatinine Glucose Magnesium 4.70 H 5.10 H Lactate Dehydrogenase Total Protein Albumin 08/17/20 08/17/20 08/18/20 14:55 14:55 23:37 RBC 3.22 L 2.92 L Hgb 8.3 L 7.5 L Hct 25.5 L 22.9 L MCV MCH 26 L 26 L Thrombin Time Potassium 3.5 L Creatinine Glucose 157 H Magnesium Lactate Dehydrogenase 186 H Total Protein 5.9 L Albumin 3.1 L 08/18/20 08/20/20 08/20/20 23:37 15:55 15:55 RBC 3.40 L Hgb 8.8 L Hct 26.7 L MCV MCH 26 L Thrombin Time 14.3 L Potassium Creatinine 0.5 L Glucose 173 H Magnesium Lactate Dehydrogenase Total Protein 6.0 L Albumin 3.0 L 08/20/20 15:55 RBC Hgb Hct MCV MCH Thrombin Time Potassium Creatinine Glucose 122 H Magnesium Lactate Dehydrogenase Total Protein Albumin Laboratory Results - last 24 hr 08/20/20 08/20/20 08/20/20 15:55 15:55 15:55 WBC 10.1 RBC 3.40 L Hgb 8.8 L Hct 26.7 L MCV 79 MCH 26 L MCHC 33 RDW 14.1 Plt Count 310 PT 13.1 INR 1.00 APTT 27.3 Thrombin Time 14.3 L Sodium 141 Potassium 4.2 Chloride 103.2 Carbon Dioxide 28 Anion Gap 14 BUN 11 Creatinine 0.6 Estimated GFR > 60 BUN/Creatinine Ratio 18 Glucose 122 H Calcium 9.5
--- NOTE | 2020-08-21 10:52 | Progress Note ---
Subjective Principal diagnosis: day 6 S/P ; preeclampsia Objective - Constitutional Vitals: Vital Signs - 12hr 08/21/20 08/21/20 08/21/20 00:00 00:34 04:00 Temperature 98.2 F 98.6 F Pulse Rate 88 98 H Respiratory 20 20 Rate Blood Pressure 146/85 Blood Pressure 156/85 149/85 [Right] O2 Sat by Pulse 99 98 Oximetry 08/21/20 08/21/20 07:45 07:46 Temperature 98.4 F Pulse Rate 103 H Respiratory 20 Rate Blood Pressure 154/100 154/100 Blood Pressure [Right] O2 Sat by Pulse 98 Oximetry - Labs CBC & Chem 7: 08/20/20 15:55 08/20/20 15:55 Labs: Abnormal lab results 08/20/20 08/20/20 08/20/20 Range/Units 15:55 15:55 15:55 RBC 3.40 L (3.65-5.03) M/mm3 Hgb 8.8 L (10.1-14.3) gm/dl Hct 26.7 L (30.3-42.9) % MCH 26 L (28-32) pg Thrombin Time 14.3 L (15.1-19.6) Sec. Glucose 122 H (65-100) mg/dL
[2020-08-21] MEDS: FAMOTIDINE 20 MG TAB PO SCH (11:02)
[2020-08-21] MEDS: FERROUS SULFATE 325 MG TAB PO SCH (11:02)
[2020-08-21] MEDS: NIFEdipine XL 30 MG TAB PO SCH (11:04)
[2020-08-21 17:18] VITALS: BP 163/86
== END 2020-08-21 19:05 | disposition home or self-care (01) | DRG 774 ==
LOC: TRG 16:44 → APU 16:49 → LD 18:42 → TRG 18:53 → OB 08-16 14:00
PROVIDERS: ADMIT Obstetrics & Gynecology; ATTEND Obstetrics & Gynecology
PROC: 10E0XZZ Delivery of Products of Conception, External Approach (ICD-10-PCS; principal; 2020-08-15)
PROC: 10907ZC Drainage of Amniotic Fluid, Therapeutic from Products of Conception, Via Natural or Artificial Opening (ICD-10-PCS; 2020-08-15)
PROC: 3E033VJ Introduction of Other Hormone into Peripheral Vein, Percutaneous Approach (ICD-10-PCS; 2020-08-15)
PROC: 3E0R3BZ Introduction of Anesthetic Agent into Spinal Canal, Percutaneous Approach (ICD-10-PCS; 2020-08-15)
PROC: 00HU33Z Insertion of Infusion Device into Spinal Canal, Percutaneous Approach (ICD-10-PCS; 2020-08-15)
DX: O11.4 Pre-existing hypertension with pre-eclampsia, complicating childbirth (principal); O98.52 Other viral diseases complicating childbirth; O10.02 Pre-existing essential hypertension complicating childbirth; B00.9 Herpesviral infection, unspecified; I16.1 Hypertensive emergency; O99.02 Anemia complicating childbirth; O69.81X0 Labor and delivery complicated by cord around neck, without compression, not applicable or unspecified; Z3A.35 35 weeks gestation of pregnancy; Z37.0 Single live birth; Z83.3 Family history of diabetes mellitus; Z82.49 Family history of ischemic heart disease and other diseases of the circulatory system
CPT/HCPCS: 36415; 59025; 70450; 71046; 76705; 76815; 76819; 80048; 80053; 81001; 82150; 82565; 83615; 83690; 83735; 84450; 84460; 84550; 85014; 85018; 85025; 85027; 85610; 85670; 85730; 86706; 86803; 86850; 86900; 86901; 87400; 93005; 96360; 96372; 96374; G0378; A6250; J0360; J0595; J0702; J1050; J2405; J2590; J3475; J7120; U0003